=== PATIENT | male | born 1955 | race Caucasian/White ===

== ENCOUNTER 2024-07-03 13:31 | Oncology outpatient (recurring) (ONCR) | payer OTHER, SELFPAY ==
[2024-07-03 14:02] LABS: Basophils # 0.1 10^3/uL (0.0-0.1); Basophils % 0.6 %; Eosinophils % 9.3 %; Hematocrit 38.5 % (37-53); Lymphocytes # 1.5 10^3/uL (0.8-4.8); Lymphocytes % 13.7 %; Mean Corpuscular Hemoglobin 28.6 pg (27-33); Mean Corpuscular Volume 86.7 fl (82-101); Mean Platelet Volume 9.6 fL (7.4-10.4); Monocytes # 0.8 10^3/uL (0.2-0.9); Monocytes % 6.7 %; Neutrophils # 7.73 10^3/uL (1.8-7.7); Neutrophils % 69.2 %; Nucleated Red Blood Cells % 0 %; Platelet Count 262 10^3/cmm (157-399); Red Blood Count 4.44 10^6/uL (3.85-5.65); Red Cell Distribution Width 14.4 % (12.1-15.1); White Blood Count 11.18 10^3/uL (3.29-11.43)
[2024-07-03 14:21] LABS: Alanine Aminotransferase 23 U/L (0-41); Alkaline Phosphatase 100 U/L (40-130); Anion Gap 15.4 (5-19); Aspartate Amino Transferase 16 U/L (0-40); Blood Urea Nitrogen 14 mg/dL (8-23); Carbon Dioxide 24 mmol/L (22-29); Chloride 103 mmol/L (98-107); Creatinine Clr Calc Pharmacy 84.7743; Globulin 2.6 g/dL (1.3-4.6); Glomerular Filtration Rate 73.9 mL/min (90-130); Glucose 92 mg/dL (65-115); Osmolality Calculated 286 mOsm/kg (285-295); Potassium 4.4 mmol/L (3.5-5.1); Sodium 138 mmol/L (136-145); Total Bilirubin 0.3 mg/dL (0.15-1.2); Total Protein 6.6 g/dL (6.6-8.7); Uric Acid 6.3 mg/dL (3.4-7.0)
[2024-07-03 14:51] LABS: Lactate Dehydrogenase 163 U/L (135-225)
[2024-07-04 13:10] LABS: Leukemia Profile (BBPL) See Report
== END 2024-07-28 23:59 | disposition home or self-care (01) ==
PROVIDERS: PCP Family Medicine; Visit Provider Internal Medicine Hematology & Oncology
DX: C92.11 Chronic myeloid leukemia, BCR/ABL-positive, in remission (principal)
CPT/HCPCS: 36415; 80053; 83615; 84550; 85025; 88184; 88185; 99204

== ENCOUNTER → 2024-07-17 08:26 | Outpatient (BNVA) | payer OTHER, SELFPAY | PROVIDERS: PCP Family Medicine; Referring Provider Family Medicine; Visit Provider Surgery | DX: Z12.11 Encounter for screening for malignant neoplasm of colon (principal) | CPT/HCPCS: 99204 ==

== ENCOUNTER 2024-07-24 14:14 | Day surgery (SDC) | payer OTHER, SELFPAY ==
[2024-07-24 14:31] VITALS: BP 160/97; PULSE 88; RESP 20; TEMP 37; O2SAT 95; BMI 40.7
--- NOTE | 2024-07-24 14:37 | P.HPUD_ITS ---
Surgery/Procedure H&P Update DATE OF PROCEDURE: July 24, 2024 DATE H&P PERFORMED: 07/17/24 H&P UPDATE INFORMATION: I have reviewed H&P completed within last 30 days, I have examined patient prior to procedure, No changes to prior documentation and H&P is in [facility] EMR on date indicated PLANNED PROCEDURE: Operation Date: 07/24/24 12:25 Proposed Procedures p Colonoscopy 26904, G0121, Z12.11(Not Applicable) - Adam Freeman MD
--- NOTE | 2024-07-24 14:37 | W.PM.OPSUD ---
Surgery/Procedure H&P Update DATE OF PROCEDURE: July 24, 2024 DATE H&P PERFORMED: 07/17/24 H&P UPDATE INFORMATION: I have reviewed H&P completed within last 30 days, I have examined patient prior to procedure, No changes to prior documentation and H&P is in [facility] EMR on date indicated PLANNED PROCEDURE: Operation Date: 07/24/24 12:25 Proposed Procedures p Colonoscopy 93458, G0121, Z12.11(Not Applicable) - Adam Freeman MD
[2024-07-24] MEDS: sodium chloride 0.9% 1,000 ML 30 ML IV (14:39)
--- NOTE | 2024-07-24 14:55 | ANES.PREANE2 ---
Pre-Anesthetic Assessment Height/Weight: Height 1.7 m Weight 117.934 kg Temp Pulse Resp BP Pulse Ox O2 Del Method 98.6 F 88 20 H 160/97 95 Room Air 07/24/24 14:31 07/24/24 14:31 07/24/24 14:31 07/24/24 14:31 07/24/24 14:31 07/24/24 14:31 Preop Diagnosis: screening Operation Date: 07/24/24 12:25 Proposed Procedures p Colonoscopy 75944, G0121, Z12.11(Not Applicable) - Adam Freeman MD Familial anesthetic complications: none Was Beta Anabel taken within 24 hours: Yes Was Clonidine taken within 24 hours: N/A Last intake: Intake Last Liquid Date 07/23/24 Last Liquid Time 22:00 Last Solid Date 07/22/24 Last Solid Time 09:00 Social No alcohol and No tobacco (history but does chew tobacco ) Exam alert, oriented x 3, clear to auscultation bilaterally and regular rate & rhythm Airway Submandibular: within normal limits Cervical ROM: within normal limits Mallampati: Class II Comments: Comments: poor dentition several missing. patient states might have swollen one today oral chemo rotted teeth Pulmonary lower lobe scarring CV/HEM Arrythmia, Congestive Heart Failure and Hypertension CABG x 3 vessel stent replaced x 01 march 2023 None reported Hepatic None reported GI None reported Metabolic Hyperlipidemia, Morbid Obesity and Thyroid Disease Musc/skel Osteoarthritis/DJD and Weakness hip pain leukemia CML Neuropsych None reported Anesthetic Plan ASA status: 3 Anesthesia: MAC Risk of > 500 ml blood loss (7ml/kg in children): No Medications/Allergies Home Medications Medication Instructions Recorded Confirmed Last Taken Type atorvastatin 40 mg tablet 40 mg PO DAILY 07/03/24 07/19/24 07/19/24 History diclofenac sodium 1 % topical gel 2 g topical QID PRN Pain 07/03/24 07/19/24 Unknown History (Voltaren Arthritis Pain) levothyroxine 112 mcg capsule 112 mcg PO DAILY 07/03/24 07/19/24 07/24/24 06:30 History lisinopril 10 mg tablet 10 mg PO DAILY 07/03/24 07/19/24 07/24/24 06:30 History metoprolol succinate 25 mg 12.5 mg PO BID 07/03/24 07/19/24 07/24/24 06:30 History tablet,extended release 24 hr oxycodone 10 mg tablet 10 mg PO Q4H PRN Pain 07/03/24 07/19/24 07/19/24 History ticagrelor 90 mg tablet (Brilinta) 90 mg PO BID 07/03/24 07/19/24 07/18/24 History 14 mushroom complex 1 tab PO DAILY 07/17/24 07/19/24 07/24/24 06:30 History E-400 1 tab PO DAILY 07/17/24 07/19/24 07/24/24 06:30 History aspirin 81 mg tablet,delayed 81 mg PO DAILY 07/17/24 07/19/24 07/24/24 06:30 History release (Adult Low Dose Aspirin) bosutinib 100 mg capsule (Bosulif) 400 mg PO DAILY 07/17/24 07/19/24 07/24/24 06:30 History cholecalciferol (vitamin D3) 50 50 mcg PO DAILY 07/17/24 07/19/24 07/24/24 06:30 History mcg (2,000 unit) capsule ondansetron HCl 4 mg tablet 4 mg PO Q8H PRN nausea and 07/17/24 07/19/24 Unknown Rx vomiting #3 tabs vitamin A acetate 3,000 mcg 3,000 mcg PO DAILY 07/17/24 07/19/24 07/24/24 06:30 History (10,000 unit) sublingual tablet Allergies Allergy/AdvReac Type Severity Reaction Status Date / Time Penicillins Allergy ALGY-Rash Verified 07/19/24 13:03 Current Medications Generic Name Dose Route Start Last Admin Trade Name Freq PRN Reason Stop Dose Admin Sodium Chloride 1,000 mls @ 30 mls/hr 07/24/24 14:30 07/24/24 14:39 Sodium Chloride 0.9% IV 07/25/24 14:29 30 mls/hr .Q24H HELEN Administration PFSH Anesthesia Family History (Updated 07/17/24 @ 08:49 by JOE Escamilla) Daughter Colon polyps Sister Cancer bone cancer Social History (Updated 07/17/24 @ 08:48 by JOE Escamilla) Smoking and tobacco/nicotine status: current every day tobacco/nicotine user (chewing tob) smokeless tobacco Smokeless tobacco user: chewing tobacco Data Anesthesia Cardiac Studies: No Data to Display
[2024-07-24 15:30] VITALS: BP 99/52; PULSE 77; RESP 20; TEMP 36.3; O2SAT 92
[2024-07-24 15:40] VITALS: BP 124/73; PULSE 80; RESP 18; O2SAT 91
[2024-07-24 15:50] VITALS: BP 137/82; PULSE 85; RESP 16; O2SAT 96
--- NOTE | 2024-07-24 16:10 | ANE.PACU2 ---
Inpatient post-anesthesia follow up: Airway intact: Yes Vital signs: Temperature 97.3 F Pulse Rate 85 Respiratory Rate 16 Blood Pressure 137/82 Pulse Oximetry 96 Oxygen Delivery Me thod Room Air Oxygen Flow Rate Fraction of Inspir ed Oxygen Hydration adequate: Yes Nausea and vomiting: No Pain level: 1 Mental status: Baseline
== END 2024-07-24 16:10 | disposition home or self-care (01) ==
PROVIDERS: PCP Family Medicine; Visit Provider Surgery
PROC: 0DJD8ZZ Inspection of Lower Intestinal Tract, Via Natural or Artificial Opening Endoscopic (ICD-10-PCS; CPT 45378; principal; 2024-07-24 12:25)
DX: Z12.11 Encounter for screening for malignant neoplasm of colon (principal); K57.30 Diverticulosis of large intestine without perforation or abscess without bleeding; I11.0 Hypertensive heart disease with heart failure; I50.9 Heart failure, unspecified; E78.5 Hyperlipidemia, unspecified; E66.01 Morbid (severe) obesity due to excess calories; Z68.41 Body mass index [BMI] 40.0-44.9, adult; F17.220 Nicotine dependence, chewing tobacco, uncomplicated; Z79.82 Long term (current) use of aspirin; I25.10 Atherosclerotic heart disease of native coronary artery without angina pectoris
CPT/HCPCS: 45378; J2704; J7030

== ENCOUNTER → 2024-08-02 10:02 | Outpatient (BNVA) | payer OTHER, SELFPAY | PROVIDERS: PCP Family Medicine; Visit Provider Specialist | DX: M25.552 Pain in left hip (principal); M16.12 Unilateral primary osteoarthritis, left hip; E66.01 Morbid (severe) obesity due to excess calories; Z68.41 Body mass index [BMI] 40.0-44.9, adult; C92.11 Chronic myeloid leukemia, BCR/ABL-positive, in remission | CPT/HCPCS: 73502; 99204 ==

== ENCOUNTER → 2024-08-10 08:26 | Outpatient (BNVA) | payer OTHER, SELFPAY | PROVIDERS: PCP Family Medicine; Visit Provider Nurse Practitioner Family | DX: L82.1 Other seborrheic keratosis (principal); L57.8 Other skin changes due to chronic exposure to nonionizing radiation; L73.8 Other specified follicular disorders; D22.5 Melanocytic nevi of trunk; L90.5 Scar conditions and fibrosis of skin; Z08 Encounter for follow-up examination after completed treatment for malignant neoplasm; Z85.828 Personal history of other malignant neoplasm of skin; L57.0 Actinic keratosis | CPT/HCPCS: 17000; 99203 ==

== ENCOUNTER 2024-09-04 13:50 | Oncology outpatient (recurring) (ONCR) | payer OTHER, SELFPAY ==
[2024-09-04 14:23] LABS: Basophils # 0.1 10^3/uL (0.0-0.1); Basophils % 0.5 %; Eosinophils # 1.3 10^3/uL (0.0-0.8); Eosinophils % 9.8 %; Hematocrit 39.2 % (37-53); Lymphocytes # 1.5 10^3/uL (0.8-4.8); Lymphocytes % 11.2 %; Mean Corpuscular HGB Conc 32.9 g/dL (30-55); Mean Corpuscular Hemoglobin 29.1 pg (27-33); Mean Corpuscular Volume 88.3 fl (82-101); Mean Platelet Volume 9.4 fL (7.4-10.4); Monocytes # 0.9 10^3/uL (0.2-0.9); Monocytes % 6.8 %; Neutrophils % 71.3 %; Nucleated Red Blood Cells % 0 %; Platelet Count 311 10^3/cmm (157-399); Red Blood Count 4.44 10^6/uL (3.85-5.65); Red Cell Distribution Width 14.3 % (12.1-15.1); White Blood Count 13.31 10^3/uL (3.29-11.43)
[2024-09-04 14:43] LABS: Alanine Aminotransferase 15 U/L (0-41); Albumin Level 3.9 g/dL (3.5-5.2); Alkaline Phosphatase 102 U/L (40-130); Aspartate Amino Transferase 12 U/L (0-40); Blood Urea Nitrogen 23 mg/dL (8-23); Calcium 9.2 mg/dL (8.5-10.5); Carbon Dioxide 20 mmol/L (22-29); Chloride 103 mmol/L (98-107); Creatinine Clr Calc Pharmacy 82.7237; Globulin 2.8 g/dL (1.3-4.6); Glomerular Filtration Rate 73.9 mL/min (90-130); Glucose 113 mg/dL (65-115); Osmolality Calculated 290 mOsm/kg (285-295); Sodium 138 mmol/L (136-145); Total Bilirubin 0.3 mg/dL (0.15-1.2); Total Protein 6.7 g/dL (6.6-8.7); Uric Acid 6.7 mg/dL (3.4-7.0)
[2024-09-04 14:59] LABS: Lactate Dehydrogenase 161 U/L (135-225)
[2024-09-07 20:08] LABS: BCR ABL1 (IS) 0.004 (0.000); P210 BCR ALB1 DETECTED; P210 BCR ALB1 Yes Test Yes; Prior Results NG; Source blood
== END 2024-09-28 23:59 | disposition home or self-care (01) ==
PROVIDERS: Internal Medicine Hematology & Oncology; PCP Family Medicine; Visit Provider Internal Medicine Medical Oncology
DX: C92.11 Chronic myeloid leukemia, BCR/ABL-positive, in remission (principal)
CPT/HCPCS: 36415; 80053; 81206; 83615; 84550; 85025; 99214

== ENCOUNTER → 2024-10-03 13:28 | Outpatient (BNVA) | payer OTHER, SELFPAY | PROVIDERS: PCP Family Medicine; Visit Provider Nurse Practitioner | DX: M16.12 Unilateral primary osteoarthritis, left hip (principal); E66.01 Morbid (severe) obesity due to excess calories; Z68.41 Body mass index [BMI] 40.0-44.9, adult; C92.11 Chronic myeloid leukemia, BCR/ABL-positive, in remission | CPT/HCPCS: 99213 ==

== ENCOUNTER 2024-10-30 12:56 | Oncology outpatient (recurring) (ONCR) | payer OTHER, SELFPAY ==
[2024-10-30 13:38] LABS: Basophils # 0.1 10^3/uL (0.0-0.1); Basophils % 0.6 %; Eosinophils # 1.3 10^3/uL (0.0-0.8); Eosinophils % 10.4 %; Hematocrit 35.8 % (37-53); Lymphocytes # 2.1 10^3/uL (0.8-4.8); Lymphocytes % 16.9 %; Mean Corpuscular HGB Conc 32.4 g/dL (30-55); Mean Corpuscular Volume 86.3 fl (82-101); Monocytes # 1.2 10^3/uL (0.2-0.9); Monocytes % 9.2 %; Neutrophils % 62.3 %; Nucleated Red Blood Cells % 0 %; Platelet Count 310 10^3/cmm (157-399); Red Blood Count 4.15 10^6/uL (3.85-5.65); Red Cell Distribution Width 14.2 % (12.1-15.1); White Blood Count 12.54 10^3/uL (3.29-11.43)
[2024-10-30 13:55] LABS: Alanine Aminotransferase 19 U/L (0-41); Alkaline Phosphatase 110 U/L (40-130); Aspartate Amino Transferase 14 U/L (0-40); Blood Urea Nitrogen 23 mg/dL (8-23); Calcium 9.3 mg/dL (8.5-10.5); Carbon Dioxide 24 mmol/L (22-29); Chloride 103 mmol/L (98-107); Globulin 2.8 g/dL (1.3-4.6); Glomerular Filtration Rate 73.9 mL/min (90-130); Glucose 98 mg/dL (65-115); Osmolality Calculated 286 mOsm/kg (285-295); Sodium 136 mmol/L (136-145); Total Bilirubin 0.2 mg/dL (0.15-1.2); Total Protein 6.8 g/dL (6.6-8.7)
[2024-11-03 18:49] LABS: P210 BCR ALB1 NOT DETECTED; P210 BCR ALB1 Yes Test Yes; Source blood
== END 2024-11-26 23:59 | disposition home or self-care (01) ==
PROVIDERS: PCP Family Medicine; Visit Provider Internal Medicine Medical Oncology
DX: C92.11 Chronic myeloid leukemia, BCR/ABL-positive, in remission (principal)
CPT/HCPCS: 36415; 80053; 81206; 85025

== ENCOUNTER → 2024-12-24 15:26 | Outpatient (BNVA) | payer OTHER, SELFPAY | PROVIDERS: PCP Family Medicine; Visit Provider Internal Medicine Cardiovascular Disease | DX: R07.9 Chest pain, unspecified (principal); R93.1 Abnormal findings on diagnostic imaging of heart and coronary circulation | CPT/HCPCS: 93005 ==

== ENCOUNTER 2025-01-01 13:19 | Oncology outpatient (recurring) (ONCR) | payer OTHER, SELFPAY ==
[2025-01-01 14:00] LABS: Basophils # 0.1 10^3/uL (0.0-0.1); Basophils % 0.5 %; Eosinophils # 1.5 10^3/uL (0.0-0.8); Hematocrit 39.1 % (37-53); Lymphocytes # 1.7 10^3/uL (0.8-4.8); Lymphocytes % 14.6 %; Mean Corpuscular HGB Conc 32.7 g/dL (30-55); Mean Corpuscular Hemoglobin 28.3 pg (27-33); Mean Corpuscular Volume 86.5 fl (82-101); Monocytes # 1.1 10^3/uL (0.2-0.9); Monocytes % 9.3 %; Neutrophils # 7.23 10^3/uL (1.8-7.7); Neutrophils % 61.9 %; Nucleated Red Blood Cells % 0 %; Platelet Count 361 10^3/cmm (157-399); Red Blood Count 4.52 10^6/uL (3.85-5.65); Red Cell Distribution Width 14.6 % (12.1-15.1); White Blood Count 11.68 10^3/uL (3.29-11.43)
[2025-01-01 14:18] LABS: Alanine Aminotransferase 18 U/L (0-41); Alkaline Phosphatase 86 U/L (40-130); Anion Gap 17.9 (5-19); Aspartate Amino Transferase 16 U/L (0-40); Blood Urea Nitrogen 27 mg/dL (8-23); Calcium 9.2 mg/dL (8.5-10.5); Carbon Dioxide 21 mmol/L (22-29); Chloride 101 mmol/L (98-107); Creatinine Clr Calc Pharmacy 82.3461; Globulin 3.2 g/dL (1.3-4.6); Glucose 87 mg/dL (65-115); Lactate Dehydrogenase 150 U/L (135-225); Osmolality Calculated 284 mOsm/kg (285-295); Potassium 4.9 mmol/L (3.5-5.1); Sodium 135 mmol/L (136-145); Total Bilirubin 0.3 mg/dL (0.15-1.2); Total Protein 7.2 g/dL (6.6-8.7)
[2025-01-04 19:18] LABS: BCR ABL1 (IS) 0.019 (0.000); P210 BCR ALB1 DETECTED; P210 BCR ALB1 Yes Test Yes; Prior Results NG; Source serum
== END 2025-01-26 23:59 | disposition home or self-care (01) ==
PROVIDERS: Nurse Practitioner; PCP Family Medicine; Visit Provider Internal Medicine Medical Oncology
DX: C92.11 Chronic myeloid leukemia, BCR/ABL-positive, in remission (principal); R60.9 Edema, unspecified; Z79.899 Other long term (current) drug therapy
CPT/HCPCS: 36415; 80053; 81206; 83615; 85025; 99214

== ENCOUNTER 2025-02-01 11:26 | Outpatient (CLI) | payer OTHER, SELFPAY ==
--- NOTE | 2025-02-01 12:00 | USCV_ITS ---
[facility] Age: 69 Gender: M : 1955 Exam Date: 02/01/2025 11:42 Ordering Phys: Maria Luisa Garrison MD ([email or web address]) Technologist: FRIEDA Exam Location: [facility] Indication: SoB BP: 110 / 60 HR: 62 Rhythm: Sinus Technical Quality: Adequate MEASUREMENTS (Male / Female) Normal Values 2D ECHO LV Diastolic Diameter PLAX 5.6 cm 4.2 - 5.9 / 3.9 - 5.3 cm IVS Diastolic Thickness 0.8 cm 0.6 - 1.0 / 0.6 - 0.9 cm IVS Systolic Thickness 1.3 cm LVPW Diastolic Thickness 1.0 cm 0.6 - 1.0 / 0.6 - 0.9 cm LVPW Systolic Thickness 1.5 cm LVOT Diameter 2.0 cm LV Ejection Fraction 2D Teich 47.6 % LV Ejection Fraction MOD 4C 50.7 % LV Ejection Fraction MOD 2C 43.6 % LV Ejection Fraction 2C AL 45.5 % LA Diameter 4.9 cm RA Systolic Volume 4C AL 56.3 ml RA Systolic Volume 4C MOD 49.4 ml LA Sys Volume AL 83.7 cm cubed LA Sys Volume Index AL 34.6 cm cubed/m squared Aorta at Sinotubular Diameter 3.0 cm IVC Diameter 2.7 cm M-MODE LA Ao Ratio MM 2.1 AV Cusp Separation MM 1.4 cm DOPPLER AV Peak Velocity 255.5 cm/s LVOT Peak Velocity 87.0 cm/s AV Area Cont Eq vti 1.1 cm squared AV Area Cont Eq pk 1.1 cm squared MV Peak Velocity 115.0 cm/s MV Area PHT 3.0 cm squared Mitral E to A Ratio 1.5 TR Peak Velocity 149.0 cm/s TR Peak Gradient 8.9 mmHg TV Peak E Velocity 53.0 cm/s PV Peak Velocity 127.0 cm/s FINDINGS Left Ventricle Moderately increased left ventricular cavity size. Severely decreased left ventricular systolic function. Left ventricular ejection fraction is estimated at 35 %. Grade II/IV diastolic dysfunction, moderately elevated filling pressures. Right Ventricle The right ventricle is normal in size and function. Right Atrium The right atrium is normal in size. Left Atrium Moderately increased left atrial size. Mitral Valve Structurally normal mitral valve without significant stenosis or prolapse. There is no mitral regurgitation. Aortic Valve Severe aortic valve calcification. Moderate aortic valve stenosis, mean gradient 13.6 mmHg, OXANA 1.1 cm squared. Trace aortic valve regurgitation. Tricuspid Valve Structurally normal tricuspid valve without significant stenosis or regurgitation. Pulmonary artery systolic pressure is normal. Pulmonic Valve Trace pulmonary valve regurgitation. Pericardium Normal pericardium without effusion. Aorta Normal ascending aorta dimension. IVC The inferior vena cava appears normal. CONCLUSIONS Moderately increased left ventricular cavity size. Severely decreased left ventricular systolic function. Left ventricular ejection fraction is estimated at 35 %. Grade II/IV diastolic dysfunction, moderately elevated filling pressures. Moderately increased left atrial size. Severe aortic valve calcification. Moderate aortic valve stenosis, mean gradient 13.6 mmHg, OXANA 1.1 cm squared. Trace aortic valve regurgitation. There is no pericardial effusion. Right atrial pressure is around 10 mm of mercury. Maria Luisa Garrison MD (Electronically Signed) Final Date: 04 February 2025 22:30 S
== END 2025-02-01 11:27 | disposition home or self-care (01) ==
LOC: RAD 11:26
PROVIDERS: PCP Family Medicine; Visit Provider Internal Medicine Cardiovascular Disease
DX: R06.02 Shortness of breath (principal); I51.7 Cardiomegaly; R93.1 Abnormal findings on diagnostic imaging of heart and coronary circulation; I35.8 Other nonrheumatic aortic valve disorders; I35.0 Nonrheumatic aortic (valve) stenosis
CPT/HCPCS: 93306

== ENCOUNTER → 2025-02-28 09:02 | Outpatient (BNVA) | payer OTHER, SELFPAY | PROVIDERS: PCP Family Medicine; Visit Provider Nurse Practitioner Family | DX: L81.4 Other melanin hyperpigmentation (principal); L90.5 Scar conditions and fibrosis of skin; L57.8 Other skin changes due to chronic exposure to nonionizing radiation; L82.1 Other seborrheic keratosis; X32.XXXA Exposure to sunlight, initial encounter; L73.8 Other specified follicular disorders; Z08 Encounter for follow-up examination after completed treatment for malignant neoplasm; Z85.828 Personal history of other malignant neoplasm of skin; L30.9 Dermatitis, unspecified; D48.5 Neoplasm of uncertain behavior of skin; L57.0 Actinic keratosis | CPT/HCPCS: 11102; 17000; 99213 ==

== ENCOUNTER 2025-03-25 13:45 | Emergency (ER) | payer OTHER, SELFPAY ==
[2025-03-25 13:49] VITALS: PULSE 70; RESP 16; TEMP 36.5; O2SAT 95
--- OUTSIDE RECORDS SUMMARY | 2025-03-25 13:53 | XMS_ITS | Patient Health Record ---
Author Organization [facility] Address [address] [place], [place] [id number] Care Team Providers Care Kindergarten Prep Teacher Name Role Phone [facility] Primary Care Provider Williams Stockton MD Unavailable [phone] [place], [place] Unavailable Unavailable Carie Squires Unavailable [phone] Allergies Allergen (clinical drug ingredient) Drug/Non Drug Allergy documented on EMR Reaction Allergy Type Onset Date Status lisinopril lisinopril Unknown Drug Allergy Inact enrique penicillin V penicillin V potassium Unknown Drug Allergy Active Results Component Value Reference Range Notes Urine tox screen / MS if ind icated Reviewed date:09/17/2024 02:12:27 PM Interpretation:Consistent Performing Lab: Notes/Report: Consistent Reason For Referral Reason Pain in left hip Diagnosis 1 Pain in left hip (M2 5.552) Referring Provider First Name Lucero Daniel ff Referring Provider Last Name [place] Referred Organization [facility] [employer] [facility] Referred Provider Williams Camacho Referred Address [address], [id number], General Notes Heaven Jordan 12:35:18 PM >Need SSN. Ready to schedule., Heaven Jordan 06/26/2024 01:15:20 PM >Left message to schedule. Referral Priority Routine Medications Medication SIG (Take, Route, Frequency, Duration) Notes Start Date End Date Status lisinopril 10 mg 1 tab(s) orally once a day Active oxyCODONE 10 mg 1-2 tabs orally Q4-6H prn pain (max 5/day; hold within 4H of planned sleep) for 28 days ICD-10: G89.29 01/10/2025 Active oxyCODONE 10 mg 1-2 tabs orally Q4-6H prn pain (max 5/day; hold within 4H of planned sleep) for 28 days Do not fill prior to 02/07/25. ICD-10: G89.29 01/07/2025 Active oxyCODONE 10 mg 1-2 tabs orally Q4-6H prn pain (max 5/day; hold within 4H of planned sleep) for 28 days Do not fill prior to 03/07/25. ICD-10: G89.29 01/07/2025 Active multivitamin Therapeutic Multiple Vitamins 1 tab(s) orally once a day 14 mushroom complex Active ticagrelor 90 mg 1 tab(s) orally 2 times a day Active furosemide 20 mg 1 tab(s) orally once a day Active vitamin A Active atorvastatin 40 mg 1 tab(s) orally once a day Active vitamin E Active Atiya Low Dose 81 mg 1 tab(s) orally once a day Active Vitamins D3 & K2 as directed A ctive bosutinib 100 mg 4 tab(s) orally for chronic myeloid leukemia Active Voltaren Arthritis Pain 1% as directed applied topically 4 times a day Active folic acid 0.4 mg 1 tab(s) orally once a day Active zinc citrate Active levothyroxine 112 mcg (0.112 mg) 1 tab(s) orally once a day Active Metoprolol Tartrate 25 mg 1 tab(s) orally 2 times a day Active Ocuvite Antioxidant Multiple Vitamins and Minerals as directed orally Active Social History Tobacco Use: Social History Observation Description Date Smoking Status WARNING: Information temporarily unavailable Tobacco use: Question Answer Notes Additional Findings: Tobacco User chews tobacco 1/4 can daily : former smoker When did you stop smoking? 1994 AUDIT-C (Standard) Question Answer Notes Did you have a drink contain ing alcohol in the past year? Yes How often did you have six o r more drinks on one occasion in the past year? Never (0 point) How many drinks did you have on a typical day when you were drinking in the past year? 1 or 2 drinks (0 point) How often did you have a dri nk containing alcohol in the past year? Monthly or less (1 point) Points 1 Interpretation Negative Problems Problem Type SNOMED Code ICD Code Onset Dates Problem Status W/U Status Risk Notes Problem High risk drug monitoring status (023051871) terminologist (current) use of opiate analgesic (Z79.891) Active confirmed Problem Sleep disorder (48781231) Other sleep disorders (G47.8) Active confirmed Problem Chronic pain (65574666) Other chronic pain (G89.29) Active confirmed Problem Osteoarthritis of hip (196713053) Osteoarthritis of hip, unspecified (M16.9) Active confirmed Problem Pain of left hip joint (finding) (855358739238308) Pain in left hip (M25.552) Active confirmed Problem Long-term current use of drug therapy (026021573) 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) Active confirmed Vital Signs Temperature 97.0 degrees Fahrenheit 01/10/2025 Oximetry 94 % 01/10/2025 Blood pressure diastolic 48 mm Hg 01/10/2025 Height 67 in 01/10/2025 Blood pressure systolic 80 mm Hg 01/10/2025 Weight 255 lbs 01/10/2025 BMI 39.93 kg/m2 01/10/2025 Encounters Encounter Location Date Provider Diagnosis [facility] [employer] [address] [place], [place] [id number] 09/17/2024 Carie Palacios Pain in left hip M25.552 ; Osteoarthritis of hip, unspecified M16.9 ; Other sleep disorders G47.8 and Other fci (current) drug therapy Z79.899 [facility] [address] [place], [place] [id number] 10/04/2024 Williams Tompson Pain in left hip M25.552 ; Osteoarthritis of hip, unspecified M16.9 ; Other sleep disorders G47.8 and Other marine oil terminal superintendent (current) drug therapy Z79.899 [facility] [address] [place], [place] [id number] 11/15/2024 Willaims Tompson Pain in left hip M25.552 ; Other chronic pain G89.29 ; Osteoarthritis of hip, unspecified M16.9 ; Other sleep disorders G47.8 and retirement (current) use of opiate analgesic Z79.891 [facility] [address] [place], [place] [id number] 01/10/2025 Williams Tompson Pain in left hip M25.552 ; Other chronic pain G89.29 and Other sleep disorders G47.8 [facility] [employer] [address] [place], [place] [id number] 12/13/2024 Williams Camacho Assessments Encounter Date Diagnosis (ICD Code) Assessment Notes Treatment Notes Treatment Clinical Notes Section Notes 01/10/2025 Other chronic pain (ICD-10 - G89.29) 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 Plan to continue oral opioid medication at today's visit. 01/10/2025 Pain in left hip (ICD-10 - M25.552) Chronic left hip pain and severe osteoarthritis of left hip. 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 Plan to continue oral opioid medication management. 11/15/2024 Pain in left hip (ICD-10 - M25.552) Chronic left hip pain and severe osteoarthritis of left hip. 10/04/2024 Pain in left hip (ICD-10 - M25.552) Patient reports today that he has met his weight loss goal / needed BMI and he is now eligible for left LEAH per Dr. Ballard, his [facility] orthopedist. 09/17/2024 Osteoarthritis of hip, unspecified (ICD-10 - M16.9) Severe osteoarthritis of the left hip as noted on left hip x-ray report from 08/02/24. 09/17/2024 Pain in left hip (ICD-10 - M25.552) Chronic left hip pain. Patient reports that a left LEAH work up was in progress while his was living in [place]. Pre-operative plan included 20 pound weight loss, updated dental care, and cardiac clearance. Upon moving to [place], that same plan has been instituted. Plan to obtain left hip MRI report from [facility] in [place], [place]. 10/04/2024 Osteoarthritis of hip, unspecified (ICD-10 - M16.9) Severe osteoarthritis of the left hip as noted on left hip x-ray report from 08/02/24. 09/17/2024 Other sleep disorders (ICD-10 - G47.8) Patient states his sleep is disrupted by trips to the bathroom and left hip pain. Consider sleep study. 11/15/2024 Osteoarthritis of hip, unspecified (ICD-10 - M16.9) Severe osteoarthritis of the left hip as noted on left hip x-ray report from 08/02/24. Patient reports that he has met his weight loss goal and is now eligible for left LEAH per Dr. Ballard, his [facility] orthopedist. 01/10/2025 Other sleep disorders (ICD-10 - G47.8) Plan to continue to restrict opioid usage in relation to sleep for safety concerns. 11/15/2024 Other sleep disorders (ICD-10 - G47.8) Plan to continue to restrict opioid usage in relation to sleep for safety concerns: patient has verbalized understanding to hold short-acting opioids within four hours of planned sleep. 10/04/2024 Other sleep disorders (ICD-10 - G47.8) Patient has stated his sleep is disrupted by trips to the bathroom and left hip pain. Patient has moderate obesity and a history of snoring and some hypersomnia. Have recommended a sleep study. Offer of an order for such a study was declined by patient: patient has verbalized understanding to notify this facility if the study is desired. Plan to restrict opioid usage in relation to sleep for safety concerns: patient has verbalized understanding to hold short-acting opioids within four hours of planned sleep. Patient has been counseled on the risks of sleep apnea (if present), with or without opioid and / or other sedative usage, and the patient verbalized understanding and acceptance of the increased risk (sleep apnea, respiratory depression, ) with opioid and / or sedative substance usage. Patient has been counseled that synergistic risk occurs with concomitant opioid and sedative usage. Patient has been counseled to hold opioid and / or sedative substances prior to planned sleep or dangerous activities and patient verbalized understanding that noncompliance would be at patient's increased risk. 09/17/2024 Other marine oil terminal superintendent (current) drug therapy (ICD-10 - Z79.899) Patient was given a copy of their Treatment Agreement; signed on 07/25/25. 2022 opioid (OUD) risk tool score = 1. This places the patient in the low risk category. Plan urine toxicology screen today in anticipation of possibly starting opioid therapy at future visit as well as to assess for any prescribed, unprescribed, and / or illicit controlled substance(s). 10/04/2024 Other marine oil terminal superintendent (current) drug therapy (ICD-10 - Z79.899) Patient has received the Opioid Analgesic [facility] Patient Counseling Guide. Patient has had opportunity to read the Guide and ask questions pertaining to the Guide. Patient has been advised on 10/04/24 that any suspected patient misuse, abuse, or diversion of controlled substances (i.e. opioids/narcotics/ pain killers) WILL result in dissolution of treatment from this clinic. Patients adhering to the concepts contained within the patient's Treatment Agreement will be protected from such termination of care. Patient signed an opioid consent form on 10/04/24. Patient was given a copy of their Treatment Agreement; signed on 07/25/25. 2022 opioid (OUD) risk tool score = 1. This places the patient in the low risk category. 11/15/2024 retirement (current) use of opiate analgesic (ICD-10 - Z79.891) Patient has a total daily MED of 75. This places the [facility] in the [facility] high risk category for total daily opioid usage. Patient confirms he currently has a dose of Narcan nasal spray as provided by previous providers. 2022 opioid (OUD) risk tool score = 1. This places the patient in the low risk category. 01/10/2025 Other The service was provided by [facility], as part of the ongoing care plan established by Williams Camacho MD, who was present in the office for direct supervision during the encounter. Patient was provided with a letter at today's visit informing patient that this clinic is closing due to Dr. Camacho's half-way; see scanned document. Terminal prescriptions were given to the patient along with tapering instructions. Due to the [facility]'s inability to store more than 1 month of opioid prescriptions at a time, remaining 2 prescriptions printed and given to patient to fill in 28 and 56 days. 10/04/2024 Other 09/17/2024 Other Continue above medication as currently prescribed by [place] PCP. Case reviewed and treatment plan approved by Dr. Camacho. 11/15/2024 Other Due to the [facility]'s inability to store more than 1 month of opioid prescriptions at a time, patient's remaining eRx will be sent in 28 days. The service was provided by [facility] Landers, as part of the ongoing care plan established by Williams Camacho MD, who was present in the office for direct supervision during the encounter. Plan Of Treatment No Information Insurance Providers Payer Name Payer Address Payer Phone Subscriber Number Group Number Insured Name Patient Relationship to Insured Coverage Start Date Coverage End Date [employer] [address] [place] [id number] Emir Mcmullen Self - patient is the insured Medical (General) History Medical History History ICD Code Chronic pain Hip pain, left Severe osteoarthritis left h ip as noted upon review of prior radiology report Sensorineural hearing loss Tinnitus, bilateral Chronic myeloid leukemia (2008 - on g treatment has been reported) Congestive heart failure Mesothelioma Sleep disorder with poor sle ep, snoring and some hypersomnia noted upon sleep apnea screening (patient has declined offer for a sleep study and possible treatment) Obesity, moderate Surgical History Surgery Date(Month/Year) Appendectomy, 1997 Bilateral total knee replacements, [place], 2 009 Open heart surgery with 4 st ents and 3 grafts, performed in [place], [place], 2008 Thoracentesis x 4, performed at [facility], 2021 Replacement of cardiac stents, performed in [place], [place], 02/2023 Colonoscopy, performed at [facility], 2023
--- OUTSIDE RECORDS SUMMARY | 2025-03-25 13:53 | XMS_ITS | Clinical Summary ---
[facility] Organization [facility] Address [address] [place] [address] Phone Care Team Providers Care Forest Supervisor Name Role Phone Unavailable Primary Care Provider Unavailabl e Allergies Active Allergy Reactions Criticality Noted Date Comments Lisinopril Cough Low 11/23/2023 Penicillins Rash Low 11/23/2023 Medications bosutinib (BOSULIF) 100 mg tablet Take 400 mg by mouth daily with breakfast. Active metoprolol tartrate (LOPRESSOR) 25 mg tablet Take 25 mg by mouth 2 times daily. Active lisinopriL (PRINIVIL) 5 mg tablet Take 5 mg by mouth late in the day. Active levothyroxine 88 mcg tablet Take 88 mcg by mouth daily in the morning. Active oxyCODONE (OxyCONTIN) 10 mg Controlled Release 12 hour crush resistant tablet Take 10 mg by mouth 4 times daily. Active ticagrelor (Brilinta) 60 mg Tablet Take 60 mg by mouth 2 times daily. Active Active Problems Problem Noted Date Diagnosed Date Pneumonia of left lower lobe due to infectious o rganism 11/23/2023 Influenza A 11/23/2023 Encounters Date Type Department Care Team Description 03/14/2025 External Device Data [facility] ABSTRACTION Provider, Abstract 02/19/2025 External Device Data [facility] ABSTRACTION Provider, Abstract 02/19/2025 External Device Data [facility] ABSTRACTION Provider, Abstract 02/13/2025 External Device Data [facility] ABSTRACTION Provider, Abstract 01/22/2025 External Device Data [facility] ABSTRACTION Provider, Abstract 01/01/2025 External Device Data [facility] ABSTRACTION Provider, Abstract from Last 3 Months Social History Tobacco Use Types Packs/Day Years Used Date Smoking Tobacco: Former Cigarettes Smokeless Tobacco: Current Tobacco Cessation:Ready to Q uit: Not Asked; Counseling Given: Not Answered Alcohol Use Standard Drinks/Week Comments Not Currently 0 (1 standard drink = 0.6 oz pur e alcohol) Sex and Gender Information Value Date Recorded Sex Assigned at Not on file Legal Sex Male 11:40 AM CDT Gender Identity Not on file Sexual Orientation Not on file Last Filed Vital Signs Vital Sign Reading Time Taken Comments Blood Pressure 120/73 07/22/2024 2:45 PM INSURANCE COMPLIANCE ANALYST Pulse 63 07/22/2024 2:45 PM INSURANCE COMPLIANCE ANALYST Temperature 36.3 C (97.3 F) 07/22/2024 2:45 PM INSURANCE COMPLIANCE ANALYST Respiratory Rate 17 07/22/2024 2:45 PM INSURANCE COMPLIANCE ANALYST Oxygen Saturation 93% 07/22/2024 2:45 PM INSURANCE COMPLIANCE ANALYST Inhaled Oxygen Concentration - - Weight 120.2 kg (265 lb) 07/22/2024 12:20 PM INSURANCE COMPLIANCE ANALYST Height 170.2 cm (5' 7 ) 07/22/2024 12:20 PM INSURANCE COMPLIANCE ANALYST Body Mass Index 41.5 07/22/2024 12:20 PM INSURANCE COMPLIANCE ANALYST Plan of Treatment Health Maintenance Due Date Last Done Comments COLORECTAL SCREENING 1998 Colorectal Cancer Screening 1998 FIT-DNA Q 3 years 1998 FIT/FOBT Q 1 year 1998 Flex Sig/CT Colonography Q 5 years 1998 PNEUMOCOCCAL VACCINE 50+ YEA RS (1 of 1 - PCV) 11/18/2003 ZOSTER VACCINE (1 of 2) 11/18/2003 RSV VACCINE (60+ or ) (1 - Risk 60-74 years 1-dose series) 2013 Abdominal Aortic Aneurysm (A AA) Screening 2018 INFLUENZA VACCINE (#1) 2025 DTAP/TDAP/TD VACCINES (4 - T d or Tdap) 12/11/2031 12/10/2021, 09/07/2011, 08/29/2000 Insurance [facility]
--- NOTE | 2025-03-25 13:54 | ECG_ITS ---
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 Measurements Intervals [place] Rate: 66 P: -1 NC: 196 QRS: -21 QRSD: 134 T: 108 QT: 423 QTc: 446 Interpretive Statements SINUS RHYTHM WITH OCCASIONAL VENTRICULAR PREMATURE COMPLEXES INDETERMINATE AXIS INTRAVENTRICULAR CONDUCTION DELAY [130+ ms QRS DURATION] Compared to ECG 12/24/2024 15:31:12 Ventricular premature complex(es) now present Indeterminate axis now present Right-axis deviation no longer present Electronically Signed On 03-28-2025 10:28:05 CDT by Buster Ndiaye M.D. [id number]
--- NOTE | 2025-03-25 14:04 | XRR_ITS ---
PROCEDURE INFORMATION: Exam: XR Chest Exam date and time: 03/25/2025 2:08 PM Age: 69 years old Clinical indication: Shortness of breath TECHNIQUE: Imaging protocol: Radiologic exam of the chest. Views: 1 view. COMPARISON: No relevant prior studies available. FINDINGS: Lungs: Mild bibasilar reticular markings. No consolidation. Pleural spaces: Small bilateral pleural effusions. No pneumothorax. Heart/Mediastinum: No cardiomegaly. Mediastinal surgical clips. Vasculature: Aortic arch atherosclerotic calcification. Bones/joints: Degenerative changes along the spine and shoulders. Prior median sternotomy. XR/XR chest 1V portable [id number] IMPRESSION: 1. Small bilateral pleural effusions. 2. Mild bibasilar reticular markings may represent edema, atelectasis or scarring.
--- NOTE | 2025-03-25 14:20 | W.ED.SOB ---
HPI - SOB/Dyspnea General: Chief Complaint: Shortness of Breath/Dyspnea Stated Complaint: sob Time Seen by Provider: 03/25/25 14:02 History of Present Illness: HPI Narrative: 69-year-old male presents emergency room complaining of shortness of breath. He has increasing lower edema extremity as well. He is currently getting chemotherapy he is concerned he may have developed a pleural effusion. Patient has a history of CML. He denies any fever sweats chills or productive cough. He has not had any chest pain. Associated symptoms: Reports orthopnea; Deny abdominal pain, chest pain, fever(s) or palpitations Related Data Home Medications ?Medication ?Instructions ?Recorded ?Confirmed diclofenac sodium 1 % topical gel 2 g topical QID PRN Pain 07/03/24 03/25/25 (Voltaren Arthritis Pain) levothyroxine 112 mcg capsule 112 mcg PO DAILY 07/03/24 03/25/25 lisinopril 10 mg tablet 10 mg PO DAILY 07/03/24 03/25/25 oxycodone 10 mg tablet See Rx Instructions .Route 07/03/24 03/25/25 .COMPLEX PRN Pain ticagrelor 90 mg tablet (Brilinta) 90 mg PO BID 07/03/24 03/25/25 aspirin 81 mg tablet,delayed 81 mg PO DAILY 07/17/24 03/25/25 release (Adult Low Dose Aspirin) bosutinib 100 mg capsule (Bosulif) 400 mg PO DAILY 07/17/24 03/25/25 cholecalciferol (vitamin D3) 50 100 mcg PO DAILY 07/17/24 03/25/25 mcg (2,000 unit) capsule vitamin A acetate 3,000 mcg 3,000 mcg PO DAILY 07/17/24 03/25/25 (10,000 unit) sublingual tablet riboflavin (vitamin B2) 50 mg 50 mg PO DAILY 09/04/24 03/25/25 tablet vitamin E (dl, acetate) 45 mg (100 45 mg PO DAILY 12/24/24 03/25/25 unit) capsule atorvastatin 40 mg tablet 40 mg PO QPM 03/25/25 03/25/25 folic acid 0.8 mg capsule 0.8 mg PO DAILY 03/25/25 03/25/25 metoprolol tartrate 25 mg tablet 25 mg PO BID 03/25/25 03/25/25 Previous Rx's ?Medication ?Instructions ?Recorded furosemide 20 mg tablet 20 mg PO DAILY #90 tabs 12/24/24 potassium chloride 10 mEq 10 meq PO DAILY #90 caps 12/24/24 capsule,extended release Allergies Allergy/AdvReac Type Severity Reaction Status Date / Time Penicillins Allergy ALGY-Rash Verified 01/01/25 13:47 Review of Systems Const: Denies: fever(s) or chills Card: Reports: swelling of feet/ankles, dyspnea on exertion and orthopnea; Denies: chest pain or palpitations Resp: Reports: dyspnea GI: Denies: abdominal pain : Denies: dysuria, urinary frequency or urinary urgency Musc: Denies: neck pain or back pain Skin/Breast: Denies: rash PFSH ED PFSH: Family History Daughter Colon polyps Sister Cancer bone cancer Social History Smoking and tobacco/nicotine status: never used tobacco/nicotine Physical Exam Const: GENERAL APPEARANCE: cooperative ORIENTATION/CONSCIOUSNESS: Yes awake, Yes oriented to person, Yes oriented to place and Yes oriented to time HENMT: COMMON NORMALS: normocephalic, atraumatic and hearing grossly normal bilaterally HEAD & SCALP: normocephalic and atraumatic Resp: COMMON NORMALS: normal respiratory effort, No retractions, No use of accessory muscles and clear to auscultation bilaterally AUSCULTATION: clear to auscultation bilaterally Cardio: COMMON NORMALS: regular rate, regular rhythm and No murmurs present (Cardio) RATE: regular rate RHYTHM: regular rhythm GI: COMMON NORMALS: Soft to palpation and No hepatosplenomegaly present AUSCULTATION: Yes normoactive bowel sounds PALPATION: Yes Soft to palpation, No Tenderness to palpation present (GI), No Guarding due to palpation present (GI) and Yes No hepatosplenomegaly present Extremity: COMMON NORMALS: normal to inspection, capillary refill normal, no clubbing, cyanosis or edema, no calf tenderness and no pedal edema Neuro: SENSORIUM/ORIENTATION: Yes oriented to person, Yes oriented to place and Yes oriented to time Skin: COMMON NORMALS: no rashes or lesions noted GENERAL SKIN EXAM: no rashes or lesions noted Course Vital Signs: Vital signs: Vital Signs Temperature 97.7 F 03/25/25 13:49 Pulse Rate 61 03/25/25 16:55 Respiratory Rate 16 03/25/25 16:55 Blood Pressure 126/98 03/25/25 16:55 Pulse Oximetry 93 03/25/25 16:55 Oxygen Delivery Me thod Room Air 03/25/25 16:00 MDM - SOB/Dyspnea Medical Decision Making The patient moderately fluid overloaded but maintaining oxygen sat well. Given IV Lasix here he is feeling much better after diuresis we will increase his Lasix to 40 mg daily for the next 3 days he should then follow-up with his primary care doctor to reassess he will need a BMP and to be reevaluated if he should continue on the higher dose of Lasix for return to his previous dose. Return if he has further problems. Medical Records I reviewed the patient's medical records. Lab Data I reviewed the patient's lab results. 03/25/25 14:13 03/25/25 14:13 Labs/Radiology: Radiology Impressions Chest X-Ray 03/25/25 14:04 IMPRESSION: 1. Small bilateral pleural effusions. 2. Mild bibasilar reticular markings may represent edema, atelectasis or scarring. Laboratory Results WBC 10.69 10^3/uL (3.29-11.43) 03/25/25 14:13 RBC 4.24 10^6/uL (3.85-5.65) 03/25/25 14:13 Hgb 12.20 g/dL (11.27-16.99) 03/25/25 14:13 Hct 37.7 % (37-53) 03/25/25 14:13 MCV 88.9 fl (82-101) 03/25/25 14:13 MCH 28.8 pg (27-33) 03/25/25 14:13 MCHC 32.4 g/dL (30-55) 03/25/25 14:13 RDW 14.4 % (12.1-15.1) 03/25/25 14:13 Plt Count 265 10^3/cmm (157-399) 03/25/25 14:13 MPV 9.5 fL (7.4-10.4) 03/25/25 14:13 Neut % (Auto) 71.0 % 03/25/25 14:13 Lymph % (Auto) 9.8 % 03/25/25 14:13 [place] % (Auto) 9.4 % 03/25/25 14:13 Eos % (Auto) 8.5 % 03/25/25 14:13 Baso % (Auto) 0.7 % 03/25/25 14:13 Neut # (Auto) 7.58 10^3/uL (1.8-7.7) 03/25/25 14:13 Lymph # (Auto) 1.1 10^3/uL (0.8-4.8) 03/25/25 14:13 [place] # (Auto) 1.0 10^3/uL (0.2-0.9) H 03/25/25 14:13 Eos # (Auto) 0.9 10^3/uL (0.0-0.8) H 03/25/25 14:13 Baso # (Auto) 0.1 10^3/uL (0.0-0.1) 03/25/25 14:13 Nucleated RBC % (auto) 0 % 03/25/25 14:13 Nucleated RBCs # 0.0 /100WBC 03/25/25 14:13 ESR 31 mm/hr (0-10) H 03/25/25 14:13 Sodium 136 mmol/L (136-145) 03/25/25 14:13 Potassium 4.3 mmol/L (3.5-5.1) 03/25/25 14:13 Chloride 102 mmol/L (98-107) 03/25/25 14:13 Carbon Dioxide 20 mmol/L (22-29) L 03/25/25 14:13 Anion Gap 18.3 (5-19) 03/25/25 14:13 BUN 23 mg/dL (8-23) 03/25/25 14:13 Creatinine 1.0 mg/dL (0.7-1.2) 03/25/25 14:13 GFR Calculation Not Reportable 03/25/25 14:13 Glucose 101 mg/dL (65-115) 03/25/25 14:13 Calculated Osmolality 286 mOsm/kg (285-295) 03/25/25 14:13 Calcium 9.2 mg/dL (8.5-10.5) 03/25/25 14:13 Total Bilirubin 0.2 mg/dL (0.15-1.2) 03/25/25 14:13 AST 16 U/L (0-40) 03/25/25 14:13 ALT 25 U/L (0-41) 03/25/25 14:13 Alkaline Phosphatase 91 U/L (40-130) 03/25/25 14:13 NT-Pro-B Natriuret Pep 2581 pg/mL (0-125) H 03/25/25 14:13 Total Protein 7.1 g/dL (6.6-8.7) 03/25/25 14:13 Albumin 4.0 g/dL (3.5-5.2) 03/25/25 14:13 Globulin 3.1 g/dL (1.3-4.6) 03/25/25 14:13 Influenza A (PCR) Negative (Negative) 03/25/25 15:11 Influenza Type B (PCR) Negative (Negative) 03/25/25 15:11 RSV (PCR) Negative (Negative) 03/25/25 15:11 SARS-CoV-2 (PCR) Negative (Negative) 03/25/25 15:11 All radiology interpretation(s) finalized by discharge EKG Data EKG 1: Interpretation: EKG 03/25/2025 1354 sinus rhythm with occasional PVC rate of 66 NC 196 [address]Tc [address] No acute ST changes no ST elevation or depression no T wave inversion. EKG 12/24/2024 no significant changes Discharge Plan Discharge Patient Disposition: Home Clinical Impression: Congestive heart failure Chronic myeloid leukemia (CML), BCR/ABL-positive Qualifiers: Leukemia Active/Remission status: in remission Qualified Code(s): C92.11 - Chronic myeloid leukemia, BCR/ABL-positive, in remission Condition: Stable Prescriptions: No Action levothyroxine 112 mcg capsule 112 mcg PO DAILY diclofenac sodium [Voltaren Arthritis Pain] 1 % gel 2 g topical QID PRN (Reason: Pain) Rx Instructions: apply to single elbow, wrist or hand; for hand includes palm/fingers/back of hand Brilinta 90 mg tablet 90 mg PO BID oxycodone 10 mg tablet See Rx Instructions .ROUTE .COMPLEX PRN (Reason: Pain) Rx Instructions: Take 1to 2 tablets by mouth every 4-6 hours as needed for pain lisinopril 10 mg tablet 10 mg PO DAILY riboflavin (vitamin B2) 50 mg tablet 50 mg PO DAILY cholecalciferol (vitamin D3) 50 mcg (2,000 unit) capsule 100 mcg PO DAILY Bosulif 100 mg capsule 400 mg PO DAILY Rx Instructions: administer with meal/food; swallow whole OR open/mix in yogurt/applesauce; do not crush/chew vitamin A acetate 3,000 mcg (10,000 unit) tablet, sublingual 3,000 mcg PO DAILY aspirin [Adult Low Dose Aspirin] 81 mg tablet,delayed release (DR/EC) 81 mg PO DAILY vitamin E (dl, acetate) 45 mg (100 unit) capsule 45 mg PO DAILY furosemide 20 mg tablet 20 mg PO DAILY Qty: 90 3RF potassium chloride 10 mEq capsule, extended release 10 meq PO DAILY Qty: 90 3RF metoprolol tartrate 25 mg tablet 25 mg PO BID atorvastatin 40 mg tablet 40 mg PO QPM folic acid 0.8 mg Capsule 0.8 mg PO DAILY Discharge Orders: Discharge ED (Routine); Ordered 03/25/25 Ordered By: Marco Salazar Referrals: Jacqueline Mackey MD [Primary Care Provider, Family Practice] Discharge Diet: Usual diet Discharge Activity: Resume usual activity Patient Instructions: Opioid Safety, Pain Management, Patient Portal & Lois Instructions Activity Restrictions/Additional Instructions: Thank you for choosing [facility] for your healthcare needs today. It is very important that you follow up as instructed or that you return to the Emergency Department should you have concerns or if your condition changes or worsens in any way. You were seen in the emergency room with complaints of shortness of breath. Your vital signs and oxygen saturation were normal in the emergency room. Chest x-ray did show some pulmonary edema but no pleural effusion. We have given a dose of IV Lasix today in the emergency room recommend you increase your Lasix to 40 mg daily for the next 3 days and then follow-up with your primary care doctor to be reevaluated. They can decide if you should continue on the higher dose or can return to your previous dose. You also need recheck of your electrolytes and kidney function at your follow-up. Print Language: Monegasque Coding Level of Care Code ED Harvest Crew Supervisor for Debbie Frazier
[2025-03-25 14:25] LABS: Hematocrit 37.7 % (37-53); Hemoglobin 12.20 g/dL (11.27-16.99); Mean Corpuscular HGB Conc 32.4 g/dL (30-55); Mean Corpuscular Hemoglobin 28.8 pg (27-33); Mean Corpuscular Volume 88.9 fl (82-101); Nucleated Red Blood Cells % 0 %; Platelet Count 265 10^3/cmm (157-399); Red Blood Count 4.24 10^6/uL (3.85-5.65); White Blood Count 10.69 10^3/uL (3.29-11.43)
[2025-03-25 14:42] LABS: Alanine Aminotransferase 25 U/L (0-41); Albumin Level 4.0 g/dL (3.5-5.2); Alkaline Phosphatase 91 U/L (40-130); Anion Gap 18.3 (5-19); Aspartate Amino Transferase 16 U/L (0-40); Blood Urea Nitrogen 23 mg/dL (8-23); Calcium 9.2 mg/dL (8.5-10.5); Carbon Dioxide 20 mmol/L (22-29); Chloride 102 mmol/L (98-107); Creatinine Clr Calc Pharmacy 81.4767; Globulin 3.1 g/dL (1.3-4.6); Glucose 101 mg/dL (65-115); Osmolality Calculated 286 mOsm/kg (285-295); Potassium 4.3 mmol/L (3.5-5.1); Sodium 136 mmol/L (136-145); Total Protein 7.1 g/dL (6.6-8.7)
[2025-03-25 14:54] VITALS: PULSE 67; RESP 18; O2SAT 96
[2025-03-25] MEDS: methylPREDNISolone sod succ 125 mg/2 mL INJ IV (15:02)
[2025-03-25 15:14] VITALS: BP 137/81; PULSE 67; RESP 18; O2SAT 96
[2025-03-25 15:17] LABS: NT Pro B Type Natriuretic Pept 2581 pg/mL (0-125)
[2025-03-25 15:47] VITALS: BP 157/71; PULSE 64; RESP 16; O2SAT 94
[2025-03-25 15:55] LABS: Respiratory Syncytial Virus Ce NEGATIVE (Negative); SARS-CoV-2 PCR NEGATIVE (Negative)
[2025-03-25 16:00] VITALS: BP 149/81; PULSE 64; RESP 16; O2SAT 95
[2025-03-25] MEDS: FUROsemide 10 mg/mL SDV 4mL 40 MG IVP (16:50)
[2025-03-25 16:55] VITALS: BP 126/98; PULSE 61; RESP 16; O2SAT 93
== END 2025-03-25 16:56 | disposition home or self-care (01) ==
PROVIDERS: Emergency Provider Family Medicine; PCP Family Medicine
DX: C92.11 Chronic myeloid leukemia, BCR/ABL-positive, in remission (principal); I50.9 Heart failure, unspecified; Z11.52 Encounter for screening for COVID-19; Z79.82 Long term (current) use of aspirin
CPT/HCPCS: 36415; 71045; 80053; 83880; 85025; 85651; 87637; 93005; 94640; 96374; 96375; 99285; J1938; J2919; J9999

== ENCOUNTER 2025-03-26 13:53 | Oncology outpatient (recurring) (ONCR) | payer OTHER, SELFPAY ==
[2025-03-26 14:34] LABS: Hematocrit 36.8 % (37-53); Hemoglobin 12.10 g/dL (11.27-16.99); Mean Corpuscular HGB Conc 32.9 g/dL (30-55); Mean Corpuscular Hemoglobin 28.7 pg (27-33); Mean Corpuscular Volume 87.2 fl (82-101); Nucleated Red Blood Cells % 0 %; Platelet Count 333 10^3/cmm (157-399); Red Blood Count 4.22 10^6/uL (3.85-5.65); White Blood Count 20.34 10^3/uL (3.29-11.43)
[2025-03-26 14:52] LABS: Alanine Aminotransferase 30 U/L (0-41); Albumin Level 4.3 g/dL (3.5-5.2); Alkaline Phosphatase 90 U/L (40-130); Anion Gap 19.4 (5-19); Aspartate Amino Transferase 60 U/L (0-40); Blood Urea Nitrogen 35 mg/dL (8-23); Calcium 9.5 mg/dL (8.5-10.5); Carbon Dioxide 20 mmol/L (22-29); Chloride 102 mmol/L (98-107); Globulin 3.1 g/dL (1.3-4.6); Glucose 116 mg/dL (65-115); Osmolality Calculated 293 mOsm/kg (285-295); Potassium 4.4 mmol/L (3.5-5.1); Sodium 137 mmol/L (136-145); Total Protein 7.4 g/dL (6.6-8.7)
[2025-03-29 21:35] LABS: BCR ABL1 (IS) 0.000 (0.000); P210 BCR ALB1 NOT DETECTED; P210 BCR ALB1 Yes Test Yes; Source blood
== END 2025-03-28 23:59 | disposition home or self-care (01) ==
LOC: ONCMED 13:53
PROVIDERS: PCP Family Medicine; Visit Provider Internal Medicine Medical Oncology
DX: C92.11 Chronic myeloid leukemia, BCR/ABL-positive, in remission (principal); R60.9 Edema, unspecified; Z79.899 Other long term (current) drug therapy
CPT/HCPCS: 36415; 80053; 81206; 85025

== ENCOUNTER 2025-03-28 07:05 | Inpatient (IN) | payer OTHER, MEDICARE, SELFPAY ==
[2025-03-28] VITALS (15 sets, daily range): BP systolic 86–125; BP diastolic 52–74; PULSE 50–65; RESP 15–21; TEMP 36.1–36.8; O2SAT 90–97
--- NOTE | 2025-03-28 07:09 | ECG_ITS ---
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 Measurements Intervals [place] Rate: 53 P: 0 NM: 206 QRS: -32 QRSD: 136 T: 123 QT: 477 QTc: 449 Interpretive Statements SINUS BRADYCARDIA INDETERMINATE AXIS INTRAVENTRICULAR CONDUCTION DELAY [130+ ms QRS DURATION] Compared to ECG 03/25/2025 13:54:35 Sinus rhythm no longer present Ventricular premature complex(es) no longer present Electronically Signed On 03-28-2025 10:20:38 CDT by Buster Ndiaye M.D. [email or web address] [id number]
--- NOTE | 2025-03-28 07:28 | XR_ITS ---
WS: [id number] Portable AP upright chest, 03/28/2025 Clinical Data: dyspnea/cough Comparison: Portable chest, 03/25/2025 Findings: There are bilateral basilar patchy opacities unchanged. The pulmonary vascularity is not increased. No pneumonia or pneumothorax is seen. The heart is slightly enlarged. The aortic arch shows mild tortuosity. Midline sternotomy sutures are seen. 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 Monitor leads are on the chest wall. XR/XR chest 1V portable [id number] Impression: 1. No change in bibasilar patchy opacities which could represent effusion, atel ectasis or even pneumonia. 2. Cardiomegaly and atherosclerosis.
--- NOTE | 2025-03-28 07:31 | W.ED.SOB ---
HPI - SOB/Dyspnea General: Chief Complaint: Shortness of Breath/Dyspnea Stated Complaint: SOB Time Seen by Provider: 03/28/25 07:13 History of Present Illness: HPI Narrative: 69-year-old male presents emergency room with complaints of shortness of breath he was seen a few days ago had some fluid overload he was given IV Lasix and improved he was discharged home on increased dose of Lasix. Patient is concerned he had pleural effusions at the time and only very small pleural effusions nothing amenable to thoracentesis. Returns today with similar complaints of orthopnea shortness of breath and leg swelling. Associated symptoms: Reports chest congestion and orthopnea; Deny abdominal pain, chest pain or fever(s) Related Data Home Medications ?Medication ?Instructions ?Recorded ?Confirmed diclofenac sodium 1 % topical gel 2 g topical QID PRN Pain 07/03/24 03/25/25 (Voltaren Arthritis Pain) levothyroxine 112 mcg capsule 112 mcg PO DAILY 07/03/24 03/25/25 lisinopril 10 mg tablet 10 mg PO DAILY 07/03/24 03/25/25 oxycodone 10 mg tablet See Rx Instructions .Route 07/03/24 03/25/25 .COMPLEX PRN Pain ticagrelor 90 mg tablet (Brilinta) 90 mg PO BID 07/03/24 03/25/25 aspirin 81 mg tablet,delayed 81 mg PO DAILY 07/17/24 03/25/25 release (Adult Low Dose Aspirin) bosutinib 100 mg capsule (Bosulif) 400 mg PO DAILY 07/17/24 03/25/25 cholecalciferol (vitamin D3) 50 100 mcg PO DAILY 07/17/24 03/25/25 mcg (2,000 unit) capsule vitamin A acetate 3,000 mcg 3,000 mcg PO DAILY 07/17/24 03/25/25 (10,000 unit) sublingual tablet riboflavin (vitamin B2) 50 mg 50 mg PO DAILY 09/04/24 03/25/25 tablet vitamin E (dl, acetate) 45 mg (100 45 mg PO DAILY 12/24/24 03/25/25 unit) capsule atorvastatin 40 mg tablet 40 mg PO QPM 03/25/25 03/25/25 folic acid 0.8 mg capsule 0.8 mg PO DAILY 03/25/25 03/25/25 metoprolol tartrate 25 mg tablet 25 mg PO BID 03/25/25 03/25/25 Previous Rx's ?Medication ?Instructions ?Recorded furosemide 20 mg tablet 20 mg PO DAILY #90 tabs 12/24/24 potassium chloride 10 mEq 10 meq PO DAILY #90 caps 12/24/24 capsule,extended release Allergies Allergy/AdvReac Type Severity Reaction Status Date / Time Penicillins Allergy ALGY-Rash Verified 01/01/25 13:47 Review of Systems Const: Denies: fever(s) or chills Card: Reports: edema, swelling of feet/ankles, dyspnea on exertion and orthopnea; Denies: chest pain Resp: Reports: dyspnea and chest congestion GI: Denies: abdominal pain : Denies: dysuria, urinary frequency or urinary urgency Musc: Denies: neck pain or back pain Skin/Breast: Denies: rash PFSH ED PFSH: Family History Daughter Colon polyps Sister Cancer bone cancer Social History Smoking and tobacco/nicotine status: never used tobacco/nicotine Physical Exam Const: GENERAL APPEARANCE: cooperative ORIENTATION/CONSCIOUSNESS: Yes awake, Yes oriented to person, Yes oriented to place and Yes oriented to time HENMT: COMMON NORMALS: normocephalic, atraumatic and hearing grossly normal bilaterally HEAD & SCALP: normocephalic and atraumatic Resp: COMMON NORMALS: normal respiratory effort, No retractions, No use of accessory muscles and clear to auscultation bilaterally AUSCULTATION: clear to auscultation bilaterally Cardio: COMMON NORMALS: regular rate, regular rhythm and No murmurs present (Cardio) RATE: regular rate RHYTHM: regular rhythm GI: COMMON NORMALS: Soft to palpation and No hepatosplenomegaly present AUSCULTATION: Yes normoactive bowel sounds PALPATION: Yes Soft to palpation, No Tenderness to palpation present (GI), No Guarding due to palpation present (GI) and Yes No hepatosplenomegaly present Extremity: COMMON NORMALS: normal to inspection, capillary refill normal and no calf tenderness GENERAL: Yes edema (Lower extremity bilateral) Neuro: SENSORIUM/ORIENTATION: Yes oriented to person, Yes oriented to place and Yes oriented to time Skin: COMMON NORMALS: no rashes or lesions noted GENERAL SKIN EXAM: no rashes or lesions noted Course Vital Signs: Vital signs: Vital Signs Temperature 97.8 F 03/28/25 07:10 Pulse Rate 50 L 03/28/25 10:02 Respiratory Rate 21 H 03/28/25 10:02 Blood Pressure 102/61 03/28/25 10:02 Pulse Oximetry 91 03/28/25 10:02 Oxygen Delivery Me thod Room Air 03/28/25 10:02 MDM - SOB/Dyspnea Medical Decision Making Patient troponin initially quite elevated but is very concerned that he may have a PE. We started him on heparin his second troponin is down decreased by 239 points. He has no chest pain his EKG is unchanged when he was seen earlier in the week and he had no chest pain at that time either. On his CT there is no evidence of pulmonary embolism there is signs of right-sided heart strain in January of this year he had an echocardiogram that showed ejection fraction of 35% severe aortic stenosis evaluate valve area of 1.1 but no right sided heart failure was read as normal right ventricular size and function. On the CT it seems that this has changed he has some hepatic vein reflux due to right-sided heart failure per Dr. Blake. When he initially arrived his blood pressure was in the 120s he was given Lasix his blood pressure did decrease and then began to rebound he got as low as 80 systolic spike up to a little over 100 at this time. Will admit the patient discussed with hospitalist consult business objects analyst. Medical Records I reviewed the patient's medical records. Lab Data I reviewed the patient's lab results. 03/28/25 07:21 03/28/25 07:21 Labs/Radiology: Radiology Impressions Chest X-Ray 03/28/25 07:28 Impression: 1. No change in bibasilar patchy opacities which could represent effusion, atelectasis or even pneumonia. 2. Cardiomegaly and atherosclerosis. Chest CTA 03/28/25 08:01 IMPRESSION: 1. No evidence for pulmonary embolus. 2. Moderate RIGHT and small LEFT pleural effusions. 3. Loculated pleural fluid/nodular pleural thickening along the RIGHT lower lobe laterally extending along the mediastinum to the lung apex. This may be benign trapped fluid but neoplasm should be excluded. 4. Compressive atelectasis RIGHT lower lobe. 5. Hazy groundglass attenuation throughout both lungs may be infectious or inflammatory versus pulmonary edema 6. Cardiomegaly. 7. Contrast reflux into the hepatic veins can be seen with RIGHT heart dysfunction Notified Marco Salazar DO at 03/28/2025 9:37 AM. Laboratory Results WBC 12.62 10^3/uL (3.29-11.43) H 03/28/25 07:21 RBC 4.45 10^6/uL (3.85-5.65) 03/28/25 07:21 Hgb 12.70 g/dL (11.27-16.99) 03/28/25 07:21 Hct 39.0 % (37-53) 03/28/25 07:21 MCV 87.6 fl (82-101) 03/28/25 07:21 MCH 28.5 pg (27-33) 03/28/25 07:21 MCHC 32.6 g/dL (30-55) 03/28/25 07:21 RDW 14.5 % (12.1-15.1) 03/28/25 07:21 Plt Count 361 10^3/cmm (157-399) 03/28/25 07:21 MPV 9.5 fL (7.4-10.4) 03/28/25 07:21 Neut % (Auto) 69.8 % 03/28/25 07:21 Lymph % (Auto) 14.2 % 03/28/25 07:21 [place] % (Auto) 9.1 % 03/28/25 07:21 Eos % (Auto) 5.4 % 03/28/25 07:21 Baso % (Auto) 0.8 % 03/28/25 07:21 Neut # (Auto) 8.81 10^3/uL (1.8-7.7) H 03/28/25 07:21 Lymph # (Auto) 1.8 10^3/uL (0.8-4.8) 03/28/25 07:21 [place] # (Auto) 1.2 10^3/uL (0.2-0.9) H 03/28/25 07:21 Eos # (Auto) 0.7 10^3/uL (0.0-0.8) 03/28/25 07:21 Baso # (Auto) 0.1 10^3/uL (0.0-0.1) 03/28/25 07:21 Nucleated RBC % (auto) 0 % 03/28/25 07:21 Nucleated RBCs # 0.0 /100WBC 03/28/25 07:21 APTT 29.9 SECONDS (23.9-36.7) 03/28/25 07:21 Sodium 137 mmol/L (136-145) 03/28/25 07:21 Potassium 4.8 mmol/L (3.5-5.1) 03/28/25 07:21 Chloride 101 mmol/L (98-107) 03/28/25 07:21 Carbon Dioxide 21 mmol/L (22-29) L 03/28/25 07:21 Anion Gap 19.8 (5-19) H 03/28/25 07:21 BUN 31 mg/dL (8-23) H 03/28/25 07:21 Creatinine 1.2 mg/dL (0.7-1.2) 03/28/25 07:21 GFR Calculation Not Reportable 03/28/25 07:21 Glucose 112 mg/dL (65-115) 03/28/25 07:21 Calculated Osmolality 291 mOsm/kg (285-295) 03/28/25 07:21 Calcium 9.4 mg/dL (8.5-10.5) 03/28/25 07:21 Total Bilirubin 0.4 mg/dL (0.15-1.2) 03/28/25 07:21 AST 47 U/L (0-40) H 03/28/25 07:21 ALT 38 U/L (0-41) 03/28/25 07:21 Alkaline Phosphatase 102 U/L (40-130) 03/28/25 07:21 Troponin T Baseline 2119 ng/L (0-15) H* 03/28/25 07:21 Troponin T 120 Minute 1880 ng/L (0-15) H 03/28/25 09:33 Delta Troponin T -239 ABS# (0-10) L 03/28/25 09:33 NT-Pro-B Natriuret Pep 2406 pg/mL (0-125) H 03/28/25 07:21 Total Protein 7.1 g/dL (6.6-8.7) 03/28/25 07:21 Albumin 4.2 g/dL (3.5-5.2) 03/28/25 07:21 Globulin 2.9 g/dL (1.3-4.6) 03/28/25 07:21 Urine Color Yellow (Yellow) 03/28/25 08:28 Urine Appearance Clear (CLEAR) 03/28/25 08:28 Urine pH 5.0 (5-7) 03/28/25 08:28 Ur Specific [place] 1.008 (1.005-1.030) 03/28/25 08:28 Urine Protein Negative (Negative) 03/28/25 08:28 Urine Glucose (UA) Negative (Normal) 03/28/25 08:28 Urine Ketones Negative (Negative) 03/28/25 08:28 Urine Blood Negative (Negative) 03/28/25 08:28 Urine Nitrate Negative (Negative) 03/28/25 08:28 Urine Bilirubin Negative (Negative) 03/28/25 08:28 Urine Urobilinogen 0.2 mg/dL (Negative) 03/28/25 08:28 Ur Leukocyte Esterase Negative (Negative) 03/28/25 08:28 Urine RBC 0-2 /hpf (0-2) 03/28/25 08:28 Urine WBC 0-5 /hpf (0-5) 03/28/25 08:28 Ur Squamous Epith Cells 0-5 /hpf (0-5) 03/28/25 08:28 Amorphous Sediment Not Reportable 03/28/25 08:28 Urine Bacteria None seen /hpf (NONE) 03/28/25 08:28 Hyaline Casts 0.81 /lpf 03/28/25 08:28 All radiology interpretation(s) finalized by discharge EKG Data EKG 1: Interpretation: EKG 03/28/2025 7:27 AM sinus bradycardia with a rate of 53 [place] interval 206 QTc 4 6 intraventricular conduction delay. No acute ST changes no significant change from previous EKG on 03/25/2025 Discharge Plan Discharge Patient Disposition: Admitted As Inpatient Clinical Impression: Acute right-sided CHF (congestive heart failure), Chronic myeloid leukemia (CML), BCR/ABL-positive Condition: Stable Coding Level of Care Code ED Automobile Mechanic Assistant for Chg Karin
[2025-03-28 07:43] LABS: Hematocrit 39.0 % (37-53); Hemoglobin 12.70 g/dL (11.27-16.99); Mean Corpuscular HGB Conc 32.6 g/dL (30-55); Mean Corpuscular Hemoglobin 28.5 pg (27-33); Mean Corpuscular Volume 87.6 fl (82-101); Nucleated Red Blood Cells % 0 %; Platelet Count 361 10^3/cmm (157-399); Red Blood Count 4.45 10^6/uL (3.85-5.65); White Blood Count 12.62 10^3/uL (3.29-11.43)
[2025-03-28] MEDS: FUROsemide 10 mg/mL SDV 4mL 40 MG IVP ×2 (07:44→17:11)
--- NOTE | 2025-03-28 07:44 | PC.NURSE ---
pt given urinal, educated on need for urine sample; states will attempt shortly, pt urinated on arrival to ED
[2025-03-28 07:53] LABS: Alanine Aminotransferase 38 U/L (0-41); Albumin Level 4.2 g/dL (3.5-5.2); Alkaline Phosphatase 102 U/L (40-130); Aspartate Amino Transferase 47 U/L (0-40); Blood Urea Nitrogen 31 mg/dL (8-23); Calcium 9.4 mg/dL (8.5-10.5); Carbon Dioxide 21 mmol/L (22-29); Chloride 101 mmol/L (98-107); Creatinine Clr Calc Pharmacy 68.7668; Globulin 2.9 g/dL (1.3-4.6); Glucose 112 mg/dL (65-115); Osmolality Calculated 291 mOsm/kg (285-295); Sodium 137 mmol/L (136-145); Total Protein 7.1 g/dL (6.6-8.7)
[2025-03-28 07:56] LABS: Anion Gap 19.8 (5-19); Potassium 4.8 mmol/L (3.5-5.1)
[2025-03-28 07:57] LABS: Troponin(5th) Baseline 2119 ng/L (0-15)
--- NOTE | 2025-03-28 08:01 | CT_ITS ---
WS: [id number] CTA OF THE CHEST WITH PULMONARY EMBOLISM PROTOCOL TECHNIQUE: High-resolution contrast enhanced CTA of the chest with coronal and sagittal reformatted images with pulmonary embolism protocol. MIP images are also reviewed. CLINICAL INFORMATION: Shortness of breath on exertion COMPARISON: None. DLP: 516.[address] scans at [facility] use at least one of these dose optimization techniques: automated exposure control; mA and/or kV adjustment per patient size (includes targeted exams where dose is matched to clinical indication); or iterative reconstruction. FINDINGS: Proximal main pulmonary arteries are normal. Normal segmental and subsegmental pulmonary arteries. No evidence of pulmonary embolus. Cardiomegaly. Moderate RIGHT and small LEFT pleural effusions. Fluid along the RIGHT fissure extending along the mediastinum to the RIGHT lung apex with nodular pleural thickening. Hazy groundglass attenuation throughout both lungs may be infectious or inflammatory. Shallow inspiration. Some of this may be due to pulmonary edema. Sternotomy. CABG. Coronary calcification. Contrast reflux into the hepatic veins can be seen with RIGHT heart failure. Small esophageal hiatal hernia. Adrenal glands are normal. Moderate thoracic kyphosis. Hypertrophic changes thoracic spine. CT/CT angio chest PE protcl [id number] IMPRESSION: 1. No evidence for pulmonary embolus. 2. Moderate RIGHT and small LEFT pleural effusions. 3. Loculated pleural fluid/nodular pleural thickening along the RIGHT lower lo be laterally extending along the mediastinum to the lung apex. This may be kristopher gn trapped fluid but neoplasm should be excluded. 4. Compressive atelectasis RIGHT lower lobe. 5. Hazy groundglass attenuation throughout both lungs may be infectious or inf lammatory versus pulmonary edema 6. Cardiomegaly. 7. Contrast reflux into the hepatic veins can be seen with RIGHT heart dysfunc tion Notified Marco Salazar DO at 03/28/2025 9:37 AM.
--- NOTE | 2025-03-28 08:04 | PC.PHAR ---
[facility] 03/28/25 8:05am
[2025-03-28] MEDS: heparin drip 25,000 UNIT/500 ML PREMIX 32 UNIT IV (08:28)
[2025-03-28] MEDS: heparin 5,000 unit/mL INJ 1 mL IVP (08:29)
[2025-03-28 08:41] LABS: NT Pro B Type Natriuretic Pept 2406 pg/mL (0-125)
[2025-03-28 08:42] LABS: Glucose Urine UA Negative (Normal); Nitrate Urine Negative (Negative); Specific Gravity, Urine 1.008 (1.005-1.030)
[2025-03-28 08:44] LABS: Add Urine Microscopic? YES
[2025-03-28] MEDS: iohexol 350 mg/mL 500 mL Btl (per mL) IV (09:15)
--- NOTE | 2025-03-28 09:17 | PC.NURSE ---
pt in CT at this time
--- NOTE | 2025-03-28 09:28 | ECG_ITS ---
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 Measurements Intervals [place] Rate: 53 P: -2 WI: 210 QRS: 44 QRSD: 146 T: 132 QT: 486 QTc: 457 Interpretive Statements SINUS BRADYCARDIA WITH FIRST DEGREE AV BLOCK INDETERMINATE AXIS INTRAVENTRICULAR CONDUCTION DELAY [130+ ms QRS DURATION] Compared to ECG 03/28/2025 07:27:16 First degree AV block now present Electronically Signed On 03-28-2025 10:28:32 CDT by Buster Ndiaye M.D. [email or web address]
[2025-03-28 09:32] LABS: Partial Thromboplastin Time 29.9 SECONDS (23.9-36.7)
[2025-03-28 10:09] LABS: Troponin 5 2HR Delta -239 ABS# (0-10)
[2025-03-28 10:10] LABS: Troponin 5 2HR 1880 ng/L (0-15)
--- NOTE | 2025-03-28 10:18 | PM.HP ---
Providers/Chief Complaint Primary Care Provider: Jacqueline Mackey MD Chief Complaint: SOB History of Present Illness Emir Mcmullen is a 69 year old male gentleman with chronic myeloid leukemia (CML) on bosutinib who presents after an emergency department (ED) visit earlier this week for worsening shortness of breath. At the prior visit on March 25 he was found to have a right-sided pleural effusion and received intravenous furosemide with symptomatic improvement; his outpatient furosemide dose was also increased. Today he reports recurrent orthopnea, leg swelling, and inability to sleep for 7?8 days due to dyspnea. En-route to the hospital he became markedly short of breath again. Review of ED data shows oxygen saturation 91%, blood pressure 86/58 mmHg, white blood cell count 0.62 K/?L (previously 20 K/?L), high-sensitivity troponin 2,119 ng/L, N-terminal pro-brain natriuretic peptide 2,406 pg/mL, and electrocardiogram with sinus bradycardia, first-degree atrioventricular block, and intraventricular conduction delay. Chest radiograph demonstrated cardiomegaly and bilateral patchy opacities with effusions; computed tomography angiogram revealed no pulmonary embolism but moderate right and small left pleural effusions, compressive atelectasis, ground-glass opacities, and a focal pleural-based lesion raising concern for trapped fluid versus neoplasm. The patient notes chronic low heart rates (40s) and is taking metoprolol 25 mg twice daily. He also reports prior pleural disease requiring thoracenteses and biopsy demonstrating mesothelial-type cells. [id number] discussion held; he desires full resuscitation unless brain is certain and designates his daughter (a nurse) as medical power of mix maker. Review of Systems Const: Denies: fever(s), chills, body aches or malaise ENMT: Denies: throat pain Card: Reports: dyspnea on exertion and orthopnea; Denies: chest pain, edema or pre-syncope Resp: Reports: dyspnea; Denies: productive cough, change in phlegm color or hemoptysis GI: Denies: abdominal pain, nausea, vomiting, diarrhea, constipation, hematochezia or melena : Denies: flank pain, difficulty urinating, urinary frequency or hematuria Musc: Denies: back pain, joint swelling or joint redness Skin/Breast: Denies: rash or new lesions Neuro: Denies: headache(s) or confusion Medications/Allergies Home Medications ?Medication ?Instructions ?Recorded ?Confirmed ?Last Taken ?Type levothyroxine 112 mcg capsule 112 mcg PO DAILY 07/03/24 03/28/25 03/27/25 History lisinopril 10 mg tablet 10 mg PO DAILY 07/03/24 03/28/25 03/27/25 History oxycodone 10 mg tablet 10 - 20 mg PO .Q4-6H PRN Pain 07/03/24 03/28/25 03/25/25 History ticagrelor 90 mg tablet (Brilinta) 90 mg PO BID 07/03/24 03/28/25 03/27/25 History bosutinib 100 mg capsule (Bosulif) 400 mg PO DAILY 07/17/24 03/28/25 03/27/25 History cholecalciferol (vitamin D3) 50 100 mcg PO DAILY 07/17/24 03/28/25 03/27/25 History mcg (2,000 unit) capsule vitamin A acetate 3,000 mcg 3,000 mcg PO DAILY 07/17/24 03/28/25 03/27/25 History (10,000 unit) sublingual tablet riboflavin (vitamin B2) 50 mg 50 mg PO DAILY 09/04/24 03/28/25 03/27/25 History tablet furosemide 20 mg tablet 20 mg PO DAILY #90 tabs 12/24/24 03/28/25 03/27/25 Rx potassium chloride 10 mEq 10 meq PO DAILY #90 caps 12/24/24 03/28/25 03/27/25 Rx capsule,extended release vitamin E (dl, acetate) 45 mg (100 45 mg PO DAILY 12/24/24 03/28/25 03/27/25 History unit) capsule atorvastatin 40 mg tablet 40 mg PO QPM 03/25/25 03/28/25 03/27/25 History metoprolol tartrate 25 mg tablet 25 mg PO BID 03/25/25 03/28/25 03/27/25 History folic acid 400 mcg tablet 0.4 mg PO DAILY 03/28/25 03/28/25 03/27/25 History triamcinolone acetonide 0.1 % 1 applic topical BID PRN Skin 03/28/25 03/28/25 Unknown History topical ointment Irritation Allergies Allergy/AdvReac Type Severity Reaction Status Date / Time Penicillins Allergy ALGY-Rash Verified 01/01/25 13:47 [id number] Reductase AdvReac Intermediate ALGY-Joint Unverified 03/28/25 13:59 Inhibitor Pain PFSH Acute PFSH: Medical History Arteriosclerotic heart disease (ASHD) Surgical History History of open heart surgery 4 stent placement -2008 Hx of appendectomy Hx of inguinal hernia repair x2 Hx of knee surgery bilat Family History Daughter Colon polyps Sister Cancer bone cancer Social History Smoking and tobacco/nicotine status: never used tobacco/nicotine Vitals/I&O/Wt Last Vital Signs Temp 97.8 F 03/28/25 07:10 Pulse 50 L 03/28/25 10:02 Resp 21 H 03/28/25 10:02 BP 102/61 03/28/25 10:02 Pulse Ox 91 03/28/25 10:02 O2 Del Method Room Air 03/28/25 10:02 Weight last 48 hrs Weight 116.12 kg Physical Exam Narrative: Sitting up in wheelchair. Const: COMMON NORMALS: patient oriented x3 and alert GENERAL APPEARANCE: cooperative ORIENTATION/CONSCIOUSNESS: Yes awake HENMT: COMMON NORMALS: oropharynx normal Neck/C-Spine: COMMON NORMALS: no JVD Resp: COMMON NORMALS: normal respiratory effort and clear to auscultation bilaterally AUSCULTATION: diminished lung sounds bilateral in the lower lung [place]ina Cardio: COMMON NORMALS: no JVD, regular rhythm, S1 normal heart sound present, S2 normal heart sound present and No murmurs present (Cardio) RHYTHM: regular rhythm HEART SOUNDS: S1 normal heart sound present and S2 normal heart sound present GI: COMMON NORMALS: Normal to inspection, nondistended, normoactive bowel sounds present, Soft to palpation and non-tender PALPATION: Yes Soft to palpation Extremity: COMMON NORMALS: no joint enlargement GENERAL: Yes edema Neuro: COMMON NORMALS: patient oriented x3 and moves all extremities SENSORIUM/ORIENTATION: Yes alert Skin: COMMON NORMALS: no rashes or lesions noted GENERAL SKIN EXAM: no rashes or lesions noted Data 03/28/25 07:21 03/28/25 07:21 A&P Assessment and plan 1. Systolic and diastolic CHF, acute on chronic: Acute decompensated systolic and diastolic heart failure : Orthopnea, bilateral lower-extremity edema, pleural effusions; EF 35%; elevated NT-proBNP; volume overload with soft blood pressure. Reviewed last echocardiogram. With noted troponin elevation, possible NSTEMI. Reviewed vitals, CBC, PTT, CMP, troponin, UA, influenza, COVID, RSV, CTA chest, chest x-ray, EKG, ED provider note, discussed with ED provider, discussed with cardiology. - Continue intravenous furosemide; cautiously diurese because of low blood pressure. - Monitor kidney function and electrolytes during diuresis with risk of deficiency, arrhythmia. Monitor on telemetry. - Check oxygen saturation and adjust supplemental O2 as needed. 2. Atherosclerotic heart disease: Troponin elevation with possible NSTEMI. With shortness of breath, acute CHF. Troponin 2119 at baseline. 2-hour troponin 1880. Complete troponin EKG series. Obtain limited echocardiogram. Monitor on telemetry with risk of arrhythmia. Treat CHF and optimize cardiac status. Discussed with cardiology, labs volume status optimized consideration of further assessment with coronary angiography. -Continue aspirin, Brilinta. Cut down beta-jake dose. He has stopped statin stating it has been giving him muscle and joint pains. Plan: Moderate aortic stenosis : Known valve disease contributing to dyspnea; recent echocardiogram in January 2025 showed moderate stenosis. Monitor for risk of hypotension. - Optimize volume status first; cardiology to reassess valve once euvolemic. - No immediate surgical intervention planned while inpatient. Pleural effusion : CT chest shows moderate right and small left pleural effusions and a focal pleural-based abnormality possibly trapped fluid versus neoplasm. - Diuresis as above. - Consider repeat imaging Incidentally noted nodule versus fluid loculation along the right lower lobe. He does report some history of pleural biopsy with some mesothelial cells noted in the past although states this was on the left side. - Refer to pulmonology for evaluation and follow-up imaging and consideration of biopsy. Bradycardia and hypotension on beta-jake and EDWARD inhibitor : Resting heart rates in 40s; BP 86/58 mmHg while on metoprolol 25 mg BID and lisinopril. - Reduce metoprolol to half-tablet dosing (12.5 mg) twice daily while inpatient; monitor heart rate. - Hold or reduce lisinopril temporarily due to hypotension until blood pressure improves. - Continue blood pressure checks. Chronic myeloid leukemia (CML) : Stable on bosutinib 400 mg daily; leukopenia noted today (WBC 0.62 K/?L) compared with previous leukocytosis. Continue follow-up with hematology. PDMP PDMP Reviewed: Not Reviewed Attestations Medical Necessity Statement*: Admission over 2 midnights anticipated for assessment management of acute systolic and diastolic CHF in a gentleman with underlying moderate aortic stenosis. and High MDM includes amount and/or complexity of data reviewed/ordered [ previous or external records, resulted lab(s)/test(s), ordered lab(s)/test(s) and other healthcare professional discussion] and described risk of complication, morbidity or mortality of management as documented Diagnoses Systolic and diastolic CHF, acute on chronic I50.43 Atherosclerotic heart disease I25.10
--- NOTE | 2025-03-28 10:33 | PC.NURSE ---
educated pt on NPO diet order
[2025-03-28 10:54] LABS: Respiratory Syncytial Virus Ce NEGATIVE (Negative); SARS-CoV-2 PCR NEGATIVE (Negative)
--- NOTE | 2025-03-28 11:07 | PC.NURSE ---
provided pt with water and sandwich per verbal order from Dr. العلي for cardiac diet
--- NOTE | 2025-03-28 11:12 | USCV_ITS ---
[facility] Age: 69 Gender: M : 1955 Exam Date: 03/28/2025 11:50 Ordering Phys: Shae Cates Technologist: Exam Location: [facility] [place] Indication: chf BP: 90 / 49 HR: Rhythm: Sinus Technical Quality: MEASUREMENTS (Male / Female) Normal Values 2D ECHO LV Diastolic Diameter PLAX 5.3 cm 4.2 - 5.9 / 3.9 - 5.3 cm IVS Diastolic Thickness 1.2 cm 0.6 - 1.0 / 0.6 - 0.9 cm IVS Systolic Thickness 1.9 cm LVPW Diastolic Thickness 1.6 cm 0.6 - 1.0 / 0.6 - 0.9 cm LVPW Systolic Thickness 1.7 cm LVOT Diameter 2.0 cm LV Ejection Fraction 2D Teich 33.6 % LV Ejection Fraction MOD 4C 56.0 % LV Ejection Fraction MOD 2C 52.6 % LV Ejection Fraction 2C AL 53.9 % LA Diameter 5.2 cm Aorta at Sinotubular Diameter 2.8 cm M-MODE LA Ao Ratio MM 1.3 AV Cusp Separation MM 1.4 cm FINDINGS Left Ventricle Mildly increased left ventricular cavity size. Severely decreased left ventricular systolic function. Left ventricular ejection fraction is estimated at 25 -30 %. Global left ventricular hypokinesis. Right Ventricle Right Atrium Left Atrium Mitral Valve Aortic Valve Severe aortic valve calcification. It is appeared to bw moderately to severely stenotic. Tricuspid Valve Pulmonic Valve Pericardium Aorta IVC CONCLUSIONS Limited echo with subotimal exam and images Mildly increased left ventricular cavity size. Severely decreased left ventricular systolic function. Left ventricular ejection fraction is estimated at 25 -30 %. Global left ventricular hypokinesis. Severe aortic valve calcification. It is appeared to bw moderately to severely stenotic. There is no pericardial effusion. Maria Luisa Garrison MD (Electronically Signed) Final Date: 28 March 2025 12:42 S
--- NOTE | 2025-03-28 11:13 | P.CONIM_ITS ---
<Statement entered by Buster Ndiaye M.D - 04/01/25 13:28> Patient was evaluated and cared for in conjunction with an advanced practice practitioner.? I personally examined the patient and reviewed the chart and all pertinent data including imaging, telemetry, and laboratory results.? I discussed the patient in detail with the advanced practice practitioner.? Please see? their note for complete consult note, testing results and agreed upon plan of care for the patient. GENERAL: Patient is alert, awake and oriented x3. HEART: Regular S1 and S2 LUNGS: Diminished air entry bilaterally CENTRAL NERVOUS SYSTEM: Grossly nonfocal. EXTREMITIES: Lower extremities without edema bilaterally. Providers/Reason For Consult 2 Consulting Physician/Specialty*: Dr Ndiaye, cardiology Reason for Consult*: elevated troponin, systolic CHF decompensation Requesting Physician: Dr. Salazar Attending Physician: Dr. العلي Primary Care Provider: Jacqueline Mackey MD History of Present Illness History of Present Illness Emir Mcmullen is a 69 year old male with past medical history of CAD status post CABG x 3 at [facility] in [place], then subsequent stents at [facility] in [place] and/or [facility]. 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 He was previously on a different medication for CML, developed pleural effusion requiring 3 separate thoracentesis procedures, last occurring about 6 years ago. He notes mesothelioma like cells in the pleural fluid. After the medication was changed to bosutinib he has not had any recurrence of pleural effusion. At that time his LVEF was 52%. He was seen in the cardiology clinic by Dr. Garrison in November, echocardiogram performed 02/01/2025 revealed LVEF 35%, moderate aortic stenosis (mean gradient 13 mmHg, OXANA 1.1 cm?). Stress test was recommended 2 weeks ago but has not been performed yet. He began to notice shortness of breath 2 to 3 days ago, then noticed swelling in his feet which he had never seen before, and shortness of breath worsened when he was getting in his truck this morning. He decided to come to the emergency room. Troponin series: 2119-> 1880. BNP 2406. Pulmonary embolism has been ruled out with CTA. CTA revealed moderate right and small left pleural effusions, loculated pleural fluid right lower lobe, groundglass attenuation throughout both lungs likely due to pulmonary edema. There is reflux into hepatic veins. EKG showed sinus bradycardia heart rate 53-56 bpm, IVCD. No ischemic ST or T wave changes. Review of Systems 2 Const: Denies: fever(s), chills, fatigue or diaphoresis Eyes: Denies: change in vision ENMT: Denies: epistaxis Card: Reports: edema, swelling of feet/ankles and dyspnea on exertion; Denies: chest pain, palpitations, irregular heart rhythm, syncope, pre-syncope, orthopnea or leg pain with exertion Resp: Reports: dyspnea; Denies: productive cough or wheezing GI: Denies: nausea, vomiting, hematemesis, hematochezia or melena : Denies: hematuria Levon/Lymph: Denies: easy bruising or easy bleeding Medications/Allergies Home Medications ?Medication ?Instructions ?Recorded ?Confirmed ?Last Taken ?Type levothyroxine 112 mcg capsule 112 mcg PO DAILY 4 03/28/25 03/27/25 History lisinopril 10 mg tablet 10 mg PO DAILY 07/03/2402/2803/27/25 History oxycodone 10 mg tablet 10 - 20 mg PO .Q4-6H PRN Ricky n 07/03/24 03/28/25 03/25/25 History ticagrelor 90 mg tablet (Brilinta) 90 mg PO BID 03/28/25 03/27/25 History bosutinib 100 mg capsule (Bosulif) 400 mg PO DAILY 03/28/25 03/27/25 History cholecalciferol (vitamin D3) 50 100 mcg PO DAILY 07/1703/28/25 03/27/25 History mcg (2,000 unit) capsule vitamin A acetate 3,000 mcg 3,000 mcg PO DAILY 4 03/28/25 03/27/25 History (10,000 unit) sublingual tablet riboflavin (vitamin B2) 50 mg 50 mg PO DAILY 09/04/24 03/28/25 03/27/25 History tablet furosemide 20 mg tablet 20 mg PO DAILY #90 tabs 11/2803/28/25 03/27/25 Rx potassium chloride 10 mEq 10 meq PO DAILY #90 caps 03/28/25 03/27/25 Rx capsule,extended release vitamin E (dl, acetate) 45 mg (100 45 mg PO DAILY 11/2803/28/25 03/27/25 History unit) capsule atorvastatin 40 mg tablet 40 mg PO QPM 03/25/2503/27/25 History metoprolol tartrate 25 mg tablet 25 mg PO BID 03/25/25 03/28/25 03/27/25 History folic acid 400 mcg tablet 0.4 mg PO DAILY 03/28/2503/27/25 History triamcinolone acetonide 0.1 % 1 applic topical BID PRN Skin 03/28/25 03/28/25 Unknown History topical ointment Irritation Allergies Allergy/AdvReac Type Severity Reaction Status Date / Time Penicillins Allergy ALGY-Rash Verified 01/01/25 13:47 Current Medications Generic Name Dose Route Start Last Admin Trade Name Freq PRN Reason Stop Dose Admin Heparin Sodium/Sodium Chloride 25,000 unit in 500 mls @ 0 mls/hr 03/28/25 08:15 03/28/25 08:28 Heparin Drip IV 13.78 unit/kg/hr CONT HELEN 32 mls/hr Protocol Administration Per Protocol PFSH Acute 2 PFSH: Medical History Arteriosclerotic heart disease (ASHD) Surgical History History of open heart surgery 4 stent placement -2008 Hx of appendectomy Hx of inguinal hernia repair x2 Hx of knee surgery bilat Family History Daughter Colon polyps Sister Cancer bone cancer Social History Smoking and tobacco/nicotine status: never used tobacco/nicotine Vitals/I&O/Wt Last Vital Signs Temp 97.8 F 03/28/25 07:10 Pulse 50 L 03/28/25 10:33 Resp 19 H 03/28/25 10:33 BP 91/64 03/28/25 10:33 Pulse Ox 92 03/28/25 10:33 O2 Del Method Room Air 03/28/25 10:33 Weight last 48 hrs Weight 256 lb Physical Exam 2 Const: COMMON NORMALS: no acute distress and patient oriented x3 GENERAL APPEARANCE: cooperative and comfortable ORIENTATION/CONSCIOUSNESS: Yes awake, Yes oriented to person, Yes oriented to place and Yes oriented to time Chest: COMMONS NORMALS: normal inspection of the chest and normal palpation of entire chest wall CHEST: Yes Symmetrical chest wall rise Resp: COMMON NORMALS: normal respiratory effort, No retractions, No use of accessory muscles and clear to auscultation bilaterally (Left upper and lower) EFFORT & INSPECTION: Yes symmetric chest movement AUSCULTATION: clear to auscultation bilaterally (Left upper and lower) and diminished lung sounds on the right Cardio: COMMON NORMALS: regular rate, regular rhythm, S1 normal heart sound present, S2 normal heart sound present, No gallops present (Cardio), No clicks present (Cardio) and No rub (Cardio) RATE: regular rate RHYTHM: regular rhythm HEART SOUNDS: S1 normal heart sound present, S2 normal heart sound present and Murmur heart sound present systolic Intensity: II/ PERIPHERAL PULSES: radial pulses present Extremity: GENERAL: Yes edema (2+ pitting edema bilaterally below the knee) Neuro: COMMON NORMALS: patient oriented x3 and moves all extremities S ENSORIUM/ORIENTATION: Yes oriented to person, Yes oriented to place and Yes oriented to time Data 03/28/25 07:21 03/28/25 07:21 A&P Assessment and plan 1. Atherosclerotic heart disease: 2. Systolic and diastolic CHF, acute on chronic: 3. Aortic stenosis, moderate: 4. History of open heart surgery: 5. Morbid obesity with BMI of 40.0-44.9, adult: 6. Chronic myeloid leukemia (CML), BCR/ABL-positive: Plan: He appears significantly volume overloaded. Will start Lasix 40 twice daily-last dose was 7 this morning. Creatinine 1.2 (baseline appears around 1.0). Potassium replacement with 20 mEq twice daily. Depending on diuresis may adjust dosing. Plan is for coronary angiogram to evaluate further once he is more euvolemic and can lay down. Continue Brilinta 90 mg twice daily. PDMP PDMP Reviewed: Not Reviewed Coding Level of Care Code Acute Code for [facility] Fwd Diagnoses Atherosclerotic heart disease I25.10 Systolic and diastolic CHF, acute on chronic I50.43 Aortic stenosis, moderate I35.0 History of open heart surgery Z98.890 Morbid obesity with BMI of 40.0-44.9, adult E66.01; Z68.41 Chronic myeloid leukemia (CML), BCR/ABL-positive C92.10
--- NOTE | 2025-03-28 13:24 | PC.NURSE ---
this nurse assumed pt care from SHERIN Concepcion at 1300.
--- NOTE | 2025-03-28 13:28 | ECG_ITS ---
[facility] Test Date: 2025-03-28 Pat Name: Emir Mcmullen Department: Room: Gender: Male Transition Program Manager: : 1955 Requested By: Macro Lama Order Number: [id number] Reading MD: JERONIMO STROUD Measurements Intervals [place] Rate: 56 P: -1 [place]: 205 QRS: 23 QRSD: 142 T: 130 QT: 465 QTc: 452 Interpretive Statements SINUS BRADYCARDIA INDETERMINATE AXIS INTRAVENTRICULAR CONDUCTION DELAY [130+ ms QRS DURATION] Compared to ECG 03/28/2025 09:21:35 First degree AV block no longer present Electronically Signed On 03-28-2025 22:21:49 CDT by JERONIMO STROUD [email or web address]
[2025-03-28 13:31] LABS: Troponin 5 6HR 1814 ng/L (0-15); Troponin 5 6HR Delta -305 ng/L (0-12)
[2025-03-28 16:31] LABS: Partial Thromboplastin Time 170.0 SECONDS (23.9-36.7)
--- NOTE | 2025-03-28 17:01 | PC.NURSE ---
Patient is refusing to have cabrera catheter placed. Instructed on need for measurement. He swore he would use his urinal. He stated, Last time they traumatized me. Informed Dr العلي
[2025-03-29] VITALS (8 sets, daily range): BP systolic 109–141; BP diastolic 66–93; PULSE 56–82; RESP 15–21; TEMP 36.5–36.7; O2SAT 94–97
[2025-03-29 01:34] LABS: Hematocrit 35.4 % (37-53); Hemoglobin 11.60 g/dL (11.27-16.99); Mean Corpuscular HGB Conc 32.8 g/dL (30-55); Mean Corpuscular Hemoglobin 28.7 pg (27-33); Mean Corpuscular Volume 87.6 fl (82-101); Nucleated Red Blood Cells % 0 %; Platelet Count 266 10^3/cmm (157-399); Red Blood Count 4.04 10^6/uL (3.85-5.65); White Blood Count 10.64 10^3/uL (3.29-11.43)
[2025-03-29 01:55] LABS: Partial Thromboplastin Time 84.2 SECONDS (23.9-36.7)
[2025-03-29 01:57] LABS: Alanine Aminotransferase 35 U/L (0-41); Albumin Level 3.6 g/dL (3.5-5.2); Alkaline Phosphatase 90 U/L (40-130); Anion Gap 19.8 (5-19); Aspartate Amino Transferase 31 U/L (0-40); Blood Urea Nitrogen 32 mg/dL (8-23); Calcium 9.0 mg/dL (8.5-10.5); Carbon Dioxide 22 mmol/L (22-29); Chloride 100 mmol/L (98-107); Creatinine Clr Calc Pharmacy 59.0175; Globulin 3.1 g/dL (1.3-4.6); Glucose 109 mg/dL (65-115); Magnesium 2.4 mg/dL (1.7-2.3); Osmolality Calculated 293 mOsm/kg (285-295); Potassium 3.8 mmol/L (3.5-5.1); Sodium 138 mmol/L (136-145); Total Protein 6.7 g/dL (6.6-8.7)
--- OUTSIDE RECORDS SUMMARY | 2025-03-29 03:19 | XMS_ITS | Patient Health Record ---
Author Organization [facility] Address [address], [place] [id number] Care Team Providers Care Utility Gelatin Maker Name Role Phone [facility] Primary Care Provider Williams Stockton MD Unavailable [phone] [place], [place] Unavailable Unavailable Carie Squires Unavailable [phone] Allergies Allergen (clinical drug ingredient) Drug/Non Drug [...] Lucero Daniel ff Referring Provider Last Name [place] Referred Organization [facility] Referred Provider Williams Camacho Referred Address [address], [id number], General Notes Heaven Jordan 12:35:18 PM >Need SSN. Ready to schedule., Heaven Jordan 06/26/2024 01:15:20 PM >Left message to schedule. Referral Priority Routine Medications Medication SIG (Take, Route, Frequency, Duration) Notes Start Date End Date Status lisinopril 10 mg 1 tab(s) orally once a day Active oxyCODONE 10 mg 1-2 tabs orally Q4-6H prn pain (max 5/day; hold within 4H of planned sleep); Duration: 28 days ICD-10: G89.29 01/10/2025 Active oxyCODONE 10 mg 1-2 tabs orally Q4-6H prn pain (max 5/day; hold within 4H of planned sleep); Duration: 28 days Do not fill prior to 02/07/25. ICD-10: G89.29 01/07/2025 Active oxyCODONE 10 mg 1-2 tabs orally Q4-6H prn pain (max 5/day; hold within 4H of planned sleep); Duration: 28 days Do not fill prior to [...] Notes Problem High risk drug monitoring status (584286414) [facility] (current) use of opiate analgesic (Z79.891) Active confirmed Problem Sleep disorder (64127530) Other sleep disorders (G47.8) Active confirmed Problem Chronic pain (45431744) Other chronic pain (G89.29) Active confirmed Problem Osteoarthritis of hip (805825277) Osteoarthritis of hip, unspecified (M16.9) Active confirmed Problem Pain of left hip joint (finding) (839026862918933) Pain in left hip (M25.552) Active confirmed Problem Long-term current use of drug therapy (986637748) Other mcc (current) drug therapy (Z79.899) Active confirmed Vital Signs Temperature 97.0 degrees Fahrenheit 01/10/2025 Blood pressure diastolic 48 mm Hg 01/10/2025 Oximetry 94 % 01/10/2025 Height 67 in 01/10/2025 Blood pressure systolic 80 mm Hg 01/10/2025 Weight 255 lbs 01/10/2025 BMI 39.93 kg/m2 01/10/2025 Encounters Encounter Location Date Provider Diagnosis [facility] [address] [place], [place] [id number] 09/17/2024 Carie Palacios Pain in left hip M25.552 ; Osteoarthritis of hip, unspecified M16.9 ; Other sleep disorders G47.8 and Other manager terminal (current) drug therapy Z79.899 [facility] [place] [address] [place], [place] [id number] 10/04/2024 Williams Momobryanna Pain in left hip M25.552 ; Osteoarthritis of hip, unspecified M16.9 ; Other sleep disorders G47.8 and Other manager terminal (current) drug therapy Z79.899 [facility] [place] [address] [place], [place] [id number] 11/15/2024 Williams Camacho Pain in left hip M25.552 ; Other chronic pain G89.29 ; Osteoarthritis of hip, unspecified M16.9 ; Other sleep disorders G47.8 and marine oil terminal superintendent (current) use of opiate analgesic Z79.891 [facility] [address] [place], [place] [id number] 01/10/2025 Williams Tompson Pain in left hip M25.552 ; Other chronic pain G89.29 and Other sleep disorders G47.8 [facility] [address], [place] [phone] 12/13/2024 Williams Camacho Assessments Encounter Date Diagnosis [...] for left LEAH per Dr. Ballard, his [facility] orthopedist. 09/17/2024 Osteoarthritis of hip, unspecified (ICD-10 - M16.9) Severe osteoarthritis of the left hip as noted on left hip x-ray report from 08/02/24. 09/17/2024 Pain in left hip (ICD-10 - M25.552) Chronic left hip pain. Patient reports that a left LEAH work up was in progress while his was living in [place]. Pre-operative plan included 20 pound weight loss, updated dental care, and cardiac clearance. Upon moving to [place], that same plan has been instituted. Plan to obtain left hip MRI report from [facility] in [place], [place]. 10/04/2024 Osteoarthritis of hip, unspecified (ICD-10 [...] for left LEAH per Dr. Ballard, his [facility] orthopedist. 01/10/2025 Other sleep disorders (ICD-10 - [...] be at patient's increased risk. 09/17/2024 Other mcc (current) drug therapy (ICD-10 - Z79.899) Patient [...] / or illicit controlled substance(s). 10/04/2024 Other manager terminal (current) drug therapy (ICD-10 - Z79.899) Patient [...] patient in the low risk category. 11/15/2024 [facility] (current) use of opiate analgesic (ICD-10 - [...] along with tapering instructions. Due to the [place] Pharmacy's inability to store more than 1 month of opioid prescriptions at a time, remaining 2 prescriptions printed and given to patient to fill in 28 and 56 days. 10/04/2024 Other 09/17/2024 Other Continue above medication as currently prescribed by [place] PCP. Case reviewed and treatment plan approved by Dr. Camacho. 11/15/2024 Other Due to the [place] Pharmacy's inability to store more than 1 [...] Date [employer] [address] [place] [id number] Emir Mcmullen Self - patient is the insured Medical (General) History Medical History History ICD Code Chronic pain Hip pain, left Severe osteoarthritis left h ip as noted upon review of prior radiology report Sensorineural hearing loss Tinnitus, bilateral Chronic myeloid leukemia (2008 - on-madan g treatment has been reported) Congestive heart failure Mesothelioma Sleep disorder with poor sle ep, snoring and some hypersomnia noted upon sleep apnea screening (patient has declined offer for a sleep study and possible treatment) Obesity, moderate Surgical History Surgery Date(Month/Year) Appendectomy, 1997 Bilateral total knee replacements, [place], 2 009 Open heart surgery with 4 st ents and 3 grafts, performed in [place], [place], 2008 Thoracentesis x 4, performed at [facility], 2021 Replacement of cardiac stents, performed in [place], [place], 02/2023 Colonoscopy, performed at [facility], 2023
--- OUTSIDE RECORDS SUMMARY | 2025-03-29 03:19 | XMS_ITS | Clinical Summary ---
Author Organization [facility] Address [address] [place] [address] Phone Care Team Providers Care Director Data Name Role Phone Unavailable Primary Care Provider [...] Comments Blood Pressure 120/73 07/22/2024 2:45 PM CHICKEN FANCIER Pulse 63 07/22/2024 2:45 PM CHICKEN FANCIER Temperature 36.3 C (97.3 F) 07/22/2024 2:45 PM CHICKEN FANCIER Respiratory Rate 17 07/22/2024 2:45 PM CHICKEN FANCIER Oxygen Saturation 93% 07/22/2024 2:45 PM CHICKEN FANCIER Inhaled Oxygen Concentration - - Weight 120.2 kg (265 lb) 07/22/2024 12:20 PM CHICKEN FANCIER Height 170.2 cm (5' 7 ) 07/22/2024 12:20 PM CHICKEN FANCIER Body Mass Index 41.5 07/22/2024 12:20 PM CHICKEN FANCIER Plan of Treatment Health Maintenance Due Date [...] or Tdap) 12/11/2031 12/10/2021, 09/07/2011, 08/29/2000 Insurance [facility]
[2025-03-29] MEDS: heparin drip 25,000 UNIT/500 ML PREMIX 23 UNIT IV (04:17)
[2025-03-29] MEDS: FUROsemide 10 mg/mL SDV 4mL 20 MG IVP (04:19)
[2025-03-29 08:56] LABS: Partial Thromboplastin Time 72.7 SECONDS (23.9-36.7)
[2025-03-29] MEDS: FUROsemide 10 mg/mL SDV 4mL 40 MG IVP (08:58)
--- NOTE | 2025-03-29 09:15 | P.PN_ITS ---
<Statement entered by Buster Ndiaye M.D - 04/02/25 08:08> Patient was cared for in conjunction with an advanced practice practitioner.? I reviewed the chart and all pertinent data including imaging, telemetry, and laboratory results.? I discussed the patient in detail with the advanced practice practitioner.? Please see?their note for progress note, testing results and agreed upon plan of care for the patient. Subjective 2 Subjective: He has diuresed well overnight, is -1870 so far this morning. Lower extremity edema improved, shortness of breath significantly improved compared to yesterday. He is able to lay virtually flat this morning. Creatinine 1.4, increased from 1.2. Will hold diuretics and plan for coronary angiogram tomorrow morning. N.p.o. after midnight tonight. Vitals/I&O/Wt Last Vital Signs Temp 97.9 F 03/29/25 11:38 Pulse 82 03/29/25 11:38 Resp 19 H 03/29/25 11:38 BP 131/93 03/29/25 11:38 Pulse Ox 97 03/29/25 11:38 O2 Del Method Room Air 03/29/25 11:38 03/28/25 03/29/25 03/29/25 22:59 06:59 14:59 Intake Total 506.667 / 980.000 473.333 / 980.000 120 / 120 Output Total 1050 / 2450 1400 / 2450 1600 / 1600 Balance -543.333 / -1470.000 -926.667 / -1470.000 -1480 / -1480 Weight last 48 hrs Weight 253 lb 3 oz Weight 256 lb 9.6 oz Weight 256 lb Physical Exam 2 Const: COMMON NORMALS: no acute distress and patient oriented x3 GENERAL APPEARANCE: cooperative and comfortable ORIENTATION/CONSCIOUSNESS: Yes awake, Yes oriented to person, Yes oriented to place and Yes oriented to time Chest: COMMONS NORMALS: normal inspection of the chest and normal palpation of entire chest wall CHEST: Yes Symmetrical chest wall rise Resp: COMMON NORMALS: normal respiratory effort, No retractions, No use of accessory muscles and clear to auscultation bilaterally EFFORT & INSPECTION: Yes symmetric chest movement AUSCULTATION: clear to auscultation bilaterally and crackles (Slight) Laterality: right and posterior Cardio: COMMON NORMALS: regular rate, regular rhythm, S1 normal heart sound present, S2 normal heart sound present, No gallops present (Cardio), No clicks present (Cardio) and No rub (Cardio) RATE: regular rate RHYTHM: regular rhythm HEART SOUNDS: S1 normal heart sound present, S2 normal heart sound present and Murmur heart sound present systolic Intensity: II/ PERIPHERAL PULSES: radial pulses present Extremity: GENERAL: Yes edema (1+ pitting edema bilateral lower extremities below the knee) Neuro: COMMON NORMALS: patient oriented x3 and moves all extremities S ENSORIUM/ORIENTATION: Yes oriented to person, Yes oriented to place and Yes oriented to time Data 03/29/25 00:55 03/29/25 00:55 A&P Assessment and plan 1. Systolic and diastolic CHF, acute on chronic: 2. Aortic stenosis, moderate: 3. History of open heart surgery: 4. Congestive heart failure: 5. Morbid obesity with BMI of 40.0-44.9, adult: 6. Chronic leukemia: Plan: He is diuresing well, we will plan for coronary angiogram first thing in the morning 0700. N.p.o. after midnight tonight. Hold diuretics. PDMP PDMP Reviewed: Not Reviewed Attestations 2 Medical Necessity Statement*: Ischemic workup, elevated troponin Coding Level of Care Code Acute Code for [facility] Diagnoses Systolic and diastolic CHF, acute on chronic I50.43 Aortic stenosis, moderate I35.0 History of open heart surgery Z98.890 Congestive heart failure I50.9 Morbid obesity with BMI of 40.0-44.9, adult E66.01; Z68.41 Chronic leukemia C95.10
--- NOTE | 2025-03-29 09:33 | PC.SOCIAL ---
IMM Update pg 2 of IMM Updated and provided w/ patient. Copy provided and copy dated, initialed and placed in chart.
[2025-03-29 14:25] LABS: Partial Thromboplastin Time 60.6 SECONDS (23.9-36.7)
--- NOTE | 2025-03-29 20:12 | P.PN_ITS ---
Subjective 2 Subjective: Subjectively he is feeling better today, he is able to recline better in bed. No chest pain or pressure. Vitals/I&O/Wt Last Vital Signs Temp 97.9 F 03/29/25 18:57 Pulse 71 03/29/25 18:57 Resp 21 H 03/29/25 18:57 BP 128/68 03/29/25 18:57 Pulse Ox 94 03/29/25 18:57 O2 Del Method Room Air 03/29/25 18:57 03/29/25 03/29/25 03/29/25 06:59 14:59 22:59 Intake Total 473.333 / 980.000 120 / 120 240 / 360 Output Total 1400 / 2450 1600 / 1600 400 / 2000 Balance -926.667 / -1470.000 -1480 / -1480 -160 / -1640 Weight last 48 hrs Weight 114.844 kg Weight 116.392 kg Weight 116.12 kg Physical Exam 2 Narrative: Sitting up in wheelchair. Const: COMMON NORMALS: patient oriented x3 and alert GENERAL APPEARANCE: c ooperative ORIENTATION/CONSCIOUSNESS: Yes awake HENMT: COMMON NORMALS: oropharynx normal Neck/C-Spine: COMMON NORMALS: no JVD Resp: COMMON NORMALS: normal respiratory effort and clear to auscultation bilaterally AUSCULTATION: clear to auscultation bilaterally and diminished lung sounds bilateral in the lower lung [place]ina Cardio: COMMON NORMALS: no JVD, regular rhythm, S1 normal heart sound present, S2 normal heart sound present and No murmurs present (Cardio) RHYTHM: regular rhythm HEART SOUNDS: S1 normal heart sound present and S2 normal heart sound present GI: COMMON NORMALS: Normal to inspection, nondistended, normoactive bowel sounds present, Soft to palpation and non-tender PALPATION: Yes Soft to palpation Extremity: COMMON NORMALS: no joint enlargement GENERAL: Yes edema (1+) Neuro: COMMON NORMALS: patient oriented x3 and moves all extremities S ENSORIUM/ORIENTATION: Yes alert Skin: COMMON NORMALS: no rashes or lesions noted GENERAL SKIN EXAM: no rashes or lesions noted Data 03/29/25 00:55 03/29/25 00:55 A&P Assessment and plan 1. Systolic and diastolic CHF, acute on chronic: Reviewed intake and output, noted and negative balance. Per discussion with him he does drink quite a bit at home as he was worried about getting dehydrated and his renal function. He states he drinks close to about a gallon in a day. Discussed with him to limit to 1-1.5 L total liquid intake in a day. Continue IV diuresis with Lasix. So far responding well. Reviewed WBC, chemistry, magnesium, reassess electrolytes with risk of deficiency, reassess renal function risk of ACACIA. Reviewed echocardiogram, noted ejection fraction down to 25-30% with global ventricular hypokinesis, severe aortic calcification appears to be low moderately severe aortic stenosis. Reviewed cardiology note, pending coronary angiogram Plans for tomorrow. Discussed with nursing, case supervisor. - Continue intravenous furosemide; cautiously diurese because of low blood pressure. - Monitor kidney function and electrolytes during diuresis with risk of deficiency, arrhythmia. Monitor on telemetry. 2. Atherosclerotic heart disease: With possible NSTEMI with troponin elevation, acute CHF. Further assessment with coronary angiography planned for tomorrow. Troponin elevated with noted gradual decline. Reviewed echocardiogram. Complete troponin EKG series. Monitor on telemetry with risk of arrhythmia. Treat CHF and optimize cardiac status. -Continue aspirin, Brilinta. Cut down beta-jake dose. He has stopped statin stating it has been giving him muscle and joint pains. Plan: Moderate aortic stenosis : Mild possibly moderate to severe aortic stenosis on echocardiogram. Given he has been symptomatic and with congestive heart failure, follow-up with cardiology with regards to stenosis and consideration of timing of referral for repair. Known valve disease contributing to dyspnea; recent echocardiogram in January 2025 showed moderate stenosis. Monitor for risk of hypotension. - Optimize volume status first; cardiology to reassess valve once euvolemic. - No immediate surgical intervention planned while inpatient. Pleural effusion : CT chest shows moderate right and small left pleural effusions and a focal pleural-based abnormality possibly trapped fluid versus neoplasm. - Diuresis as above. - Consider repeat imaging Incidentally noted nodule versus fluid loculation along the right lower lobe. He does report some history of pleural biopsy with some mesothelial cells noted in the past although states this was on the left side. - Refer to pulmonology for evaluation and follow-up imaging and consideration of biopsy. Bradycardia and hypotension on beta-jake and EDWARD inhibitor : Resting heart rates in 40s; BP 86/58 mmHg while on metoprolol 25 mg BID and lisinopril. - Reduce metoprolol to half-tablet dosing (12.5 mg) twice daily while inpatient; monitor heart rate. - Hold or reduce lisinopril temporarily due to hypotension until blood pressure improves. - Continue blood pressure checks. Chronic myeloid leukemia (CML) : Stable on bosutinib 400 mg daily; leukopenia noted today (WBC 0.62 K/?L) compared with previous leukocytosis. Continue follow-up with hematology. PDMP PDMP Reviewed: Not Reviewed Attestations 2 Medical Necessity Statement*: Continue admission for assessment and management of acute CHF, further assessment of coronary disease with possible NSTEMI and High MDM includes amount and/or complexity of data reviewed/ordered [ resulted lab(s)/test(s), ordered lab(s)/test(s) and other healthcare professional discussion] and described risk of complication, morbidity or mortality of management as documented Diagnoses Systolic and diastolic CHF, acute on chronic I50.43 Atherosclerotic heart disease I25.10
[2025-03-29 20:26] LABS: Partial Thromboplastin Time 58.1 SECONDS (23.9-36.7)
[2025-03-30] VITALS (10 sets, daily range): BP systolic 103–136; BP diastolic 61–79; PULSE 59–80; RESP 18–26; TEMP 36.4–36.9; O2SAT 88–97
[2025-03-30] MEDS: heparin drip 25,000 UNIT/500 ML PREMIX 23 UNIT IV (02:02)
[2025-03-30 03:06] LABS: Hematocrit 37.1 % (37-53); Hemoglobin 12.10 g/dL (11.27-16.99); Mean Corpuscular HGB Conc 32.6 g/dL (30-55); Mean Corpuscular Hemoglobin 28.5 pg (27-33); Mean Corpuscular Volume 87.3 fl (82-101); Nucleated Red Blood Cells % 0 %; Platelet Count 306 10^3/cmm (157-399); Red Blood Count 4.25 10^6/uL (3.85-5.65); White Blood Count 10.39 10^3/uL (3.29-11.43)
[2025-03-30 03:26] LABS: Alanine Aminotransferase 43 U/L (0-41); Albumin Level 3.9 g/dL (3.5-5.2); Alkaline Phosphatase 99 U/L (40-130); Anion Gap 18.3 (5-19); Aspartate Amino Transferase 28 U/L (0-40); Blood Urea Nitrogen 23 mg/dL (8-23); Calcium 9.5 mg/dL (8.5-10.5); Carbon Dioxide 23 mmol/L (22-29); Chloride 102 mmol/L (98-107); Creatinine Clr Calc Pharmacy 68.3592; Globulin 3.2 g/dL (1.3-4.6); Glucose 101 mg/dL (65-115); Osmolality Calculated 292 mOsm/kg (285-295); Partial Thromboplastin Time 66.0 SECONDS (23.9-36.7); Potassium 4.3 mmol/L (3.5-5.1); Sodium 139 mmol/L (136-145); Total Protein 7.1 g/dL (6.6-8.7)
--- NOTE | 2025-03-30 07:14 | W.PM.OPSUD ---
Surgery/Procedure H&P Update DATE OF PROCEDURE: March 30, 2025 DATE H&P PERFORMED: 03/28/25 H&P UPDATE INFORMATION: I have reviewed H&P completed within last 30 days, I have examined patient prior to procedure and No changes to prior documentation PREOP DIAGNOSIS: NSTEMI/ Congestive heart failure/ aortic stenosis PRIMARY INDICATION FOR PROCEDURE: NSTEMI/ Congestive heart failure/ aortic stenosis PLANNED PROCEDURE: Operation Date: 03/30/25 06:00 Proposed Procedures p Cardiac Catheterization(Left) - Buster Ndiaye M.D Possible percutaneous coronary intervention PATIENT REASSESSED PRIOR TO SEDATION, WITH NO CHANGE NOTED: Yes PHYSICAL EXAM: alert, oriented x 3, clear to auscultation bilaterally and regular rate & rhythm AIRWAY EVAL/ANESTHESIA PLAN: normal airway, ASA III, Local Anesthesia, Risks, benefits & alternatives of sedation and/or procedure discussed and Patient agrees to continue as planned ADDITIONAL INFORMATION: Moderate sedation
[2025-03-30 07:42] LABS: Alveolar-Arterial Oxygen Gradi 4.7 mmHg (5-10); Arterial Blood Gas Hematocrit 38.3 % (42-52); Blood Gas Operator Identificat WALCI; Blood Gas Sample Type Arterial; Carboxyhemoglobin 1.3 %THgb (0.4-20.1); Methemoglobin 0.9 % (0.4-1.5)
[2025-03-30 07:44] LABS: Alveolar-Arterial Oxygen Gradi 8.1 mmHg (5-10); Arterial Blood Gas Hematocrit 36.6 % (42-52); Blood Gas Operator Identificat WALCI; Blood Gas Sample Type Arterial; Carboxyhemoglobin 1.3 %THgb (0.4-20.1); Methemoglobin 1.0 % (0.4-1.5)
--- NOTE | 2025-03-30 08:25 | P.PCN_ITS ---
Procedure Note: Date of procedure: 03/30/25 Pre-procedure diagnosis: NSTEMI/ Congestive heart failure Post-procedure diagnosis: other (Total occlusion of distal left main artery) Procedure: Distal left main artery is totally occluded with no flow in left circumflex artery. MARIE to LAD is patent. RCA is patent Moderate aortic stenosis Severely elevated right and left sided cardiac pressures Patient needs aggressive diuresis and optimized medical therapy for congestive heart failure Will recommend lifevest placement Performing Provider: Buster Ndiaye Estimated blood loss (mL): 10 Complications: None Condition: stable Disposition: floor Coding Level of Care Code Acute Code for [facility]
--- NOTE | 2025-03-30 08:35 | PC.NURSE ---
patient arrived back from director of cardiac cath lab at 0828. Bedside observation done with Telly Hughes RN. No hematoma noted, r groin minx closure. NO hematoma noted on arrival.
--- NOTE | 2025-03-30 09:40 | P.PN_ITS ---
Subjective 2 Subjective: 69-year-old male underwent jed ective coronary angiogram this morning without further intervention. His left circumflex is receiving no flow his distal left main is occluded and his MARIE to LAD is patent and RCA is patent. He has low EF 25 to 30% and recommended for LifeVest.. He is to continue on diuresis currently limited by hypotension I spoke with him regarding sleep apnea and he thinks he does have sleep apnea. He has not been treated for sleep apnea. He does have morbid obesity and has been working at weight loss making some changes but still eating butter and eggs. He states he is not a diabetic and blood sugars have been around 100 Patient states he had mesothelial cells on pleural effusion tapped 5 years ago. He states there is some thickening that physicians are concerned about. He states he had thoracentesis 4 times the first 3 times removed 2 L and the last one 4 ounces about 5 years ago Patient admits to snoring and sometimes he wakes up with his throat sore Vitals/I&O/Wt Last Vital Signs Temp 98.3 F 03/30/25 03:20 Pulse 70 03/30/25 09:32 Resp 24 H 03/30/25 09:32 BP 103/61 03/30/25 09:32 Pulse Ox 92 03/30/25 09:29 O2 Del Method Room Air 03/30/25 09:32 03/29/25 03/30/25 03/30/25 22:59 06:59 14:59 Intake Total 612.6 / 732.6 168.417 / 901.017 Output Total 1000 / 2600 300 / 300 Balance -387.4 / -1867.4 168.417 / -1698.983 -300 / -300 Weight last 48 hrs Weight 115.349 kg Weight 114.844 kg Weight 116.392 kg Physical Exam 2 Narrative: General well-developed well-nourished obese male in no acute cardiopulmonary stress Oropharynx chewing tobacco poor dentition Mallampati 2 CV regular rate and rhythm Lungs clear to auscultation bilaterally but diminished in the bases Abdomen positive bowel sounds obese Calves 1+ to 2 bilateral pretibial edema Data 03/30/25 02:32 03/30/25 02:32 Echo: Radiologist's impression: Limited echo with subotimal exam and images Mildly increased left ventricular cavity size. Severely decreased left ventricular systolic function. Left ventricular ejection fraction is estimated at 25 -30 %. Global left ventricular hypokinesis. Severe aortic valve calcification. It is appeared to bw moderately to severely stenotic. There is no pericardial effusion. CTA Chest: Radiologist's impression: IMPRESSION: 1. No evidence for pulmonary embolus. 2. Moderate RIGHT and small LEFT pleural effusions. 3. Loculated pleural fluid/nodular pleural thickening along the RIGHT lower lobe laterally extending along the mediastinum to the lung apex. This may be benign trapped fluid but neoplasm should be excluded. 4. Compressive atelectasis RIGHT lower lobe. 5. Hazy groundglass attenuation throughout both lungs may be infectious or inflammatory versus pulmonary edema 6. Cardiomegaly. 7. Contrast reflux into the hepatic veins can be seen with RIGHT heart dysfunction A&P Assessment and plan 1. Systolic and diastolic CHF, acute on chronic: Reviewed echocardiogram, noted ejection fraction down to 25-30% with global ventricular hypokinesis, severe aortic calcification appears to be low moderately severe aortic stenosis. Reviewed cardiology note, pending coronary angiogram Patient on fluid restriction and LifeVest recommended by Dr. Ndiaye. Angiogram this morning showed left circumflex no flow distal left main total occlusion MARIE to LAD patent. RCA patent moderate aortic stenosis severely elevated left and right side cardiac pressures and recommended aggressive diuresis currently limited by borderline hypotension 2. Atherosclerotic heart disease: Medical management and LifeVest as above. Blood pressure was low at 103/61 -Continue aspirin, Brilinta. Cut down beta-jake dose. He has stopped statin stating it has been giving him muscle and joint pains. Will check lipoprotein a, lipid panel and hs-CRP in the morning 3. Chronic myeloid leukemia (CML), BCR/ABL-positive: Patient remains on bosutinib. White count 10.39 and differential is close to normal 4. Aortic stenosis, moderate: moderate aortic stenosis by angiogram today 5. Obesity (BMI 30-39.9): Patient counseled regarding weight loss diet and he is agreeable Plan: Pleural effusion : CT chest shows moderate right and small left pleural effusions and a focal pleural-based abnormality possibly trapped fluid versus neoplasm. - Diuresis as above. - Consider repeat imaging Incidentally noted nodule versus fluid loculation along the right lower lobe. He does report some history of pleural biopsy with some mesothelial cells noted in the past although states this was on the left side. - Refer to pulmonology for evaluation and follow-up imaging and consideration of biopsy. PDMP PDMP Reviewed: Not Reviewed Attestations 2 Medical Necessity Statement*: Patient remains in hospital for diuresis and likely stop his heparin drip Coding Level of Care Code 31576 Diagnoses Systolic and diastolic CHF, acute on chronic I50.43 Atherosclerotic heart disease I25.10 Chronic myeloid leukemia (CML), BCR/ABL-positive C92.10 Aortic stenosis, moderate I35.0 Obesity (BMI 30-39.9) E66.9 Time Spent (min) 45
--- NOTE | 2025-03-30 13:38 | P.PN_ITS ---
Subjective 2 Subjective: Patient had coronary angiogram performed today. No chest pain. Has occluded left main artery. Patent AMRIE to LAD and [place] RCA. Vitals/I&O/Wt Last Vital Signs Temp 97.8 F 03/30/25 12:00 Pulse 59 L 03/30/25 12:00 Resp 18 03/30/25 12:00 BP 116/63 03/30/25 12:00 Pulse Ox 88 L 03/30/25 12:00 O2 Del Method Room Air 03/30/25 09:32 03/29/25 03/30/25 03/30/25 22:59 06:59 14:59 Intake Total 612.6 / 732.6 168.417 / 901.017 480 / 480 Output Total 1000 / 2600 300 / 300 Balance -387.4 / -1867.4 168.417 / -1698.983 180 / 180 Weight last 48 hrs Weight 254 lb 4.8 oz Weight 253 lb 3 oz Weight 256 lb 9.6 oz Physical Exam 2 Narrative: GENERAL: Patient is alert, awake and oriented x3. [] NECK: No jugular vein distension. [] HEENT: No cyanosis. No icterus. No pallor. [] HEART: Regular S1 and S2. Grade 3/6 systolic murmur LUNGS: Clear to auscultate bilaterally. [] CENTRAL NERVOUS SYSTEM: Grossly nonfocal. [] EXTREMITIES: Lower extremities with 1+ edema bilaterally. Data 03/31/25 03:04 03/31/25 03:04 A&P Assessment and plan 1. Systolic and diastolic CHF, acute on chronic: 2. Aortic stenosis, moderate: 3. History of open heart surgery: 4. Congestive heart failure: 5. Morbid obesity with BMI of 40.0-44.9, adult: 6. Chronic leukemia: Plan: Coronary angiogram demonstrated patent [place] RCA and MARIE to LAD. Distal left main stent is occluded. Medical management for CAD. Continue aspirin and Brilinta. Right and left-sided cardiac pressures are severely elevated. Will recommend aggressive diuresis. Close I&O's and renal function monitoring. Valve study showed moderate aortic stenosis. Medical therapy at this time. Thank you for involving us with care of this patient. We will continue to follow. Please call with questions. PDMP PDMP Reviewed: Not Reviewed Attestations 2 Medical Necessity Statement*: Care expected to cross 2 midnights. Coding Level of Care Code Acute Code for Chg Fwd Diagnoses Systolic and diastolic CHF, acute on chronic I50.43 Aortic stenosis, moderate I35.0 History of open heart surgery Z98.890 Congestive heart failure I50.9 Morbid obesity with BMI of 40.0-44.9, adult E66.01; Z68.41 Chronic leukemia C95.10
[2025-03-31 04:00] VITALS: BP 99/53; PULSE 60; RESP 15; O2SAT 95
[2025-03-31 04:09] LABS: Hematocrit 34.4 % (37-53); Hemoglobin 11.00 g/dL (11.27-16.99); Mean Corpuscular HGB Conc 32.0 g/dL (30-55); Mean Corpuscular Hemoglobin 28.5 pg (27-33); Mean Corpuscular Volume 89.1 fl (82-101); Nucleated Red Blood Cells % 0 %; Platelet Count 297 10^3/cmm (157-399); Red Blood Count 3.86 10^6/uL (3.85-5.65); White Blood Count 11.15 10^3/uL (3.29-11.43)
[2025-03-31 04:31] LABS: CRP High Sensitivity Cardiac 1.840 mg/dL (0.0-0.3); Cholesterol 188 mg/dL (0-200); HDL Cholesterol 38 mg/dL (60-100); Triglycerides 114 mg/dL (0-150)
[2025-03-31 04:34] LABS: Alanine Aminotransferase 37 U/L (0-41); Albumin Level 3.9 g/dL (3.5-5.2); Alkaline Phosphatase 86 U/L (40-130); Anion Gap 16.2 (5-19); Aspartate Amino Transferase 17 U/L (0-40); Blood Urea Nitrogen 19 mg/dL (8-23); Calcium 9.2 mg/dL (8.5-10.5); Carbon Dioxide 22 mmol/L (22-29); Chloride 103 mmol/L (98-107); Creatinine Clr Calc Pharmacy 74.7497; Globulin 2.2 g/dL (1.3-4.6); Glucose 100 mg/dL (65-115); Osmolality Calculated 284 mOsm/kg (285-295); Potassium 5.2 mmol/L (3.5-5.1); Sodium 136 mmol/L (136-145); Total Protein 6.1 g/dL (6.6-8.7)
[2025-03-31 05:40] VITALS: PULSE 56
[2025-03-31 07:27] VITALS: BP 114/69; PULSE 63; RESP 15; TEMP 36.6; O2SAT 96
--- NOTE | 2025-03-31 07:38 | P.PN_ITS ---
Subjective 2 Subjective: Patient is doing well. no chest pain. Vitals/I&O/Wt Last Vital Signs Temp 97.9 F 03/31/25 07:27 Pulse 63 03/31/25 07:27 Resp 15 03/31/25 07:27 BP 114/69 03/31/25 07:27 Pulse Ox 96 03/31/25 07:27 O2 Del Method Room Air 03/31/25 04:00 03/30/25 03/31/25 03/31/25 22:59 06:59 14:59 Intake Total 1565.650 / 2045.650 300 / 2345.650 Output Total 225 / 525 350 / 875 Balance 1340.650 / 1520.650 -50 / 1470.650 Weight last 48 hrs Weight 253 lb 11.2 oz Weight 254 lb 4.8 oz Physical Exam 2 Narrative: GENERAL: Patient is alert, awake and oriented x3. [] NECK: No jugular vein distension. [] HEENT: No cyanosis. No icterus. No pallor. [] HEART: Regular S1 and S2. Grade 3/6 systolic murmur LUNGS: Clear to auscultate bilaterally. [] CENTRAL NERVOUS SYSTEM: Grossly nonfocal. [] EXTREMITIES: Lower extremities with 1+ edema bilaterally. Data 03/31/25 03:04 04/02/25 03:30 A&P Assessment and plan 1. Systolic and diastolic CHF, acute on chronic: 2. Aortic stenosis, moderate: 3. History of open heart surgery: 4. Congestive heart failure: 5. Morbid obesity with BMI of 40.0-44.9, adult: 6. Chronic leukemia: Plan: Medical management for CAD. We will uptitrate diuretic therapy. Cardiac pressures are severely elevated. Close I and Os. Monitor renal function. We will order lifevest Thank you for involving us with care of this patient. We will continue to follow. Please call with questions. PDMP PDMP Reviewed: Not Reviewed Attestations 2 Medical Necessity Statement*: Care expected to cross 2 midnights. Coding Level of Care Code Acute Code for Chg Fwd Diagnoses Systolic and diastolic CHF, acute on chronic I50.43 Aortic stenosis, moderate I35.0 History of open heart surgery Z98.890 Congestive heart failure I50.9 Morbid obesity with BMI of 40.0-44.9, adult E66.01; Z68.41 Chronic leukemia C95.10
[2025-03-31] MEDS: FUROsemide 10 mg/mL SDV 10mL 60 MG IVP ×2 (10:03→20:35)
[2025-03-31 12:00] VITALS: BP 109/67; PULSE 69; RESP 28; TEMP 36.6; O2SAT 96
--- NOTE | 2025-03-31 13:20 | PM.PN ---
Subjective Subjective: Patient had coronary angiogram performed 03/30/2025. No chest pain. Has occluded left main artery. Patent MARIE to LAD and [place] RCA. Patient is able to lay flat now and searches phone. He states he feels much better he has been voiding copious amounts of urine with IV diuresis. Blood pressure has been soft Vitals/I&O/Wt Last Vital Signs Temp 97.9 F 03/31/25 12:00 Pulse 69 03/31/25 12:00 Resp 28 H 03/31/25 12:00 BP 109/67 03/31/25 12:00 Pulse Ox 96 03/31/25 12:00 O2 Del Method Room Air 03/31/25 04:00 03/30/25 03/31/25 03/31/25 22:59 06:59 14:59 Intake Total 1565.650 / 2045.650 300 / 2345.650 480 / 480 Output Total 225 / 525 350 / 875 450 / 450 Balance 1340.650 / 1520.650 -50 / 1470.650 30 / 30 Weight last 48 hrs Weight 115.076 kg Weight 115.349 kg Physical Exam Narrative: General well-developed well-nourished obese male in no acute cardiopulmonary stress Oropharynx chewing tobacco poor dentition Mallampati 2 CV regular rate and rhythm Lungs clear to auscultation bilaterally no crackles Extremities 1+ bilateral pretibial edema Data 03/31/25 03:04 03/31/25 03:04 A&P Assessment and plan 1. Systolic and diastolic CHF, acute on chronic: Reviewed echocardiogram, noted ejection fraction down to 25-30% with global ventricular hypokinesis, severe aortic calcification appears to be low moderately severe aortic stenosis. Reviewed cardiology note, pending coronary angiogram Patient on fluid restriction and LifeVest recommended by Dr. Ndiaye. Angiogram this morning showed left circumflex no flow distal left main total occlusion MARIE to LAD patent. RCA patent moderate aortic stenosis severely elevated left and right side cardiac pressures and recommended aggressive diuresis currently limited by borderline hypotension Continue with diuresis will hold metoprolol for now. Patient is negative recorded 1667 but he states he has filled his urinal twice today already chest x-ray two-view in the morning 2. Atherosclerotic heart disease: Medical management and LifeVest as above. Blood pressure was low at 103/61 -Continue aspirin, Brilinta. Cut down beta-jake dose. He has stopped statin stating it has been giving him muscle and joint pains. Will check lipoprotein a, lipid panel and hs-CRP in the morning 3. Chronic myeloid leukemia, BCR/ABL-positive, in remission: Patient remains on bosutinib. White count 10.39 and differential is close to normal 4. Aortic stenosis, moderate: moderate aortic stenosis by angiogram 03/30/2025 5. Obesity (BMI 30-39.9): Patient counseled regarding weight loss diet and he is agreeable Plan: Repeat chest x-ray two-view in the morning. Patient has had repeated thoracentesis as chronically is 5 years ago he has some pleural thickening of uncertain significance. Follow-up outpatient but this seems less concerning due to the chronicity of the problem PDMP PDMP Reviewed: Not Reviewed Attestations Medical Necessity Statement*: Patient remains in the hospital for IV diuresis anticipate switch to oral regimen tomorrow and then home on Tuesday Coding Level of Care Code 57464 Diagnoses Systolic and diastolic CHF, acute on chronic I50.43 Atherosclerotic heart disease I25.10 Chronic myeloid leukemia, BCR/ABL-positive, in remission C92.11 Leukemia Active/Remission status: in remission Aortic stenosis, moderate I35.0 Obesity (BMI 30-39.9) E66.9 Time Spent (min) 25
--- NOTE | 2025-03-31 13:26 | XRR_ITS ---
PROCEDURE INFORMATION: Exam: XR Chest Exam date and time: 03/31/2025 2:23 PM Age: 69 years old Clinical indication: Pain; Chest pressure; Additional info: Follow-up pleural effusion and congestive heart failure, has done well with diuresis lung exam cleared up TECHNIQUE: Imaging protocol: Radiologic exam of the chest. Views: 2 views. COMPARISON: CT angio chest PE protcl [id number] 03/28/2025 9:07 AM FINDINGS: Lungs: Decrease in the bilateral lower lobe atelectasis. Pleural spaces: Decrease in the right pleural effusion with residual small right pleural effusion. Near-complete resolution of the left pleural effusion. Heart/Mediastinum: The heart is enlarged. Bones/joints: Mild degenerative disease of bilateral acromioclavicular joints. There are mild degenerative changes of the glenohumeral joint. Sternotomy wires and mediastinal surgical clips are present, consistent with previous coronary arterial bypass grafting. The thoracic spine demonstrates mild degenerative changes at multiple levels. XR/XR chest 2V* [id number] IMPRESSION: Decrease in bilateral pleural effusions with lower lobe consolidation/collapse.
[2025-03-31 16:00] VITALS: BP 108/61; PULSE 70; RESP 24; O2SAT 94
[2025-03-31 20:00] VITALS: BP 114/64; PULSE 68; RESP 18; TEMP 36.9
[2025-04-01] VITALS (7 sets, daily range): BP systolic 108–135; BP diastolic 68–84; PULSE 64–83; RESP 12–23; TEMP 36.4–37.7; O2SAT 94–98
[2025-04-01] MEDS: FUROsemide 10 mg/mL SDV 10mL 60 MG IVP (08:41)
--- NOTE | 2025-04-01 09:55 | PC.SOCIAL ---
IMM Update Pg. 2 of IMM updated and reviewed with patient, who verbalized understanding. Copy provided at bedside.
--- NOTE | 2025-04-01 10:42 | P.PN_ITS ---
<Statement entered by Buster Ndiaye M.D - 04/02/25 10:05> Patient was cared for in conjunction with an advanced practice practitioner.? I reviewed the chart and all pertinent data including imaging, telemetry, and laboratory results.? I discussed the patient in detail with the advanced practice practitioner.? Please see?their note for progress note, testing results and agreed upon plan of care for the patient. Subjective 2 Subjective: He is sitting up in the chair this morning, shortness of breath is resolved no chest pain present. Vitals/I&O/Wt Last Vital Signs Temp 97.9 F 04/01/25 07:23 Pulse 68 04/01/25 07:23 Resp 21 H 04/01/25 07:23 BP 125/78 04/01/25 07:23 Pulse Ox 98 04/01/25 07:23 O2 Del Method Room Air 03/31/25 04:00 03/31/25 04/01/25 04/01/25 22:59 06:59 14:59 Intake Total 480 / 480 Output Total 700 / 3850 1600 / 3850 800 / 800 Balance -700 / -3370 -1600 / -3370 -320 / -320 Weight last 48 hrs Weight 243 lb 14.4 oz Weight 243 lb 14.4 oz Weight 253 lb 11.2 oz Physical Exam 2 Const: COMMON NORMALS: no acute distress and patient oriented x3 GENERAL APPEARANCE: cooperative and comfortable ORIENTATION/CONSCIOUSNESS: Yes awake, Yes oriented to person, Yes oriented to place and Yes oriented to time Chest: COMMONS NORMALS: normal inspection of the chest and normal palpation of entire chest wall CHEST: Yes Symmetrical chest wall rise Resp: COMMON NORMALS: normal respiratory effort, No retractions, No use of accessory muscles and clear to auscultation bilaterally EFFORT & INSPECTION: Yes symmetric chest movement AUSCULTATION: clear to auscultation bilaterally Cardio: COMMON NORMALS: regular rate, regular rhythm, S1 normal heart sound present, S2 normal heart sound present, No gallops present (Cardio), No clicks present (Cardio), No murmurs present (Cardio) and No rub (Cardio) RATE: r egular rate RHYTHM: regular rhythm HEART SOUNDS: S1 normal heart sound present and S2 normal heart sound present PERIPHERAL PULSES: radial pulses present Extremity: GENERAL: Yes edema (1+ pitting edema bilateral feet) Neuro: COMMON NORMALS: patient oriented x3 and moves all extremities S ENSORIUM/ORIENTATION: Yes oriented to person, Yes oriented to place and Yes oriented to time Data 03/31/25 03:04 03/31/25 03:04 A&P Assessment and plan 1. Systolic and diastolic CHF, acute on chronic: 2. Aortic stenosis, moderate: 3. History of open heart surgery: 4. Obesity (BMI 30-39.9): 5. Chronic leukemia: Plan: He is looking better overall. I discussed with him use of a LifeVest today since his LVEF is 25 to 30%. He is in agreement to use, will place order today. He would benefit from Entresto, will start low dose 24/26mg BID and watch blood pressures overnight. He appears nearly euvolemic. Will reduce Lasix to 40mg BID from 60mg which will improve blood pressure as well. He is stable to discharge home tomorrow. Follow-up in the cardiology clinic in 7 to 10 days. Continue Brilinta and aspirin, metoprolol currently on hold, he has a longstanding history of bradycardia without taking a beta jake. Would hold spironolactone for now, can add after he has been started on Entresto and laboratory testing completed. Potassium has been placed on hold due to hyperkalemia, 5.2 yesterday. With the combination of Entresto and spironolactone he could potentially be hyperkalemic as well. Priority would be for Entresto to increase LVEF, add on therapy with spironolactone if possible. PDMP PDMP Reviewed: Not Reviewed Attestations 2 Medical Necessity Statement*: possible discharge tomorrow Coding Level of Care Code Acute Code for Chg Fwd Diagnoses Systolic and diastolic CHF, acute on chronic I50.43 Aortic stenosis, moderate I35.0 History of open heart surgery Z98.890 Obesity (BMI 30-39.9) E66.9 Chronic leukemia C95.10
--- NOTE | 2025-04-01 17:52 | P.PN_ITS ---
Subjective 2 Subjective: Chart reviewed. Patient denies any new complaints. Lower extremity edema continues to improve. He saturating well on room air. Net -5.3 L to date. Medications: Reviewed: Yes Vitals/I&O/Wt Last Vital Signs Temp 97.7 F 04/01/25 16:00 Pulse 65 04/01/25 16:00 Resp 15 04/01/25 16:00 BP 118/72 04/01/25 16:00 Pulse Ox 96 04/01/25 16:00 O2 Del Method Room Air 03/31/25 04:00 04/01/25 04/01/25 04/01/25 06:59 14:59 22:59 Intake Total 840 / 840 Output Total 1600 / 3850 1100 / 1100 Balance -1600 / -3370 -260 / -260 Weight last 48 hrs Weight 110.631 kg Weight 110.631 kg Weight 115.076 kg Physical Exam 2 Narrative: General: No acute distress, AO x3 HEENT: PERRLA, pupils bilaterally equal and reactive, pallors not present Chest: Normal vesicular breath sounds, no added sounds, equal good air entry bilaterally CVS: S1-S2 regular, no murmurs, no tachycardia, no gallops, no rubs Abdomen: Soft, nontender, no organomegaly, bowel sounds present Neuro: No focal deficits, no facial deformity, AO x3, power 5/5 in all limbs Data 03/31/25 03:04 03/31/25 03:04 A&P Assessment and plan 1. Systolic and diastolic CHF, acute on chronic: Reviewed echocardiogram, noted ejection fraction down to 25-30% with global ventricular hypokinesis, severe aortic calcification appears to be low moderately severe aortic stenosis. Reviewed cardiology note, pending coronary angiogram Patient on fluid restriction and LifeVest recommended by Dr. Ndiaye. Angiogram this morning showed left circumflex no flow distal left main total occlusion MARIE to LAD patent. RCA patent moderate aortic stenosis severely elevated left and right side cardiac pressures and recommended aggressive diuresis currently limited by borderline hypotension Continue with diuresis will hold metoprolol for now. Patient is negative recorded 1667 but he states he has filled his urinal twice today already chest x-ray two-view in the morning 2. Atherosclerotic heart disease: Medical management and LifeVest as above. Blood pressure was low at 103/61 -Continue aspirin, Brilinta. Cut down beta-jake dose. He has stopped statin stating it has been giving him muscle and joint pains. Will check lipoprotein a, lipid panel and hs-CRP in the morning 3. Chronic myeloid leukemia, BCR/ABL-positive, in remission: Patient remains on bosutinib. White count 10.39 and differential is close to normal 4. Aortic stenosis, moderate: moderate aortic stenosis by angiogram 03/30/2025 5. Obesity (BMI 30-39.9): Patient counseled regarding weight loss diet and he is agreeable Plan: Repeat chest x-ray two-view in the morning. Patient has had repeated thoracentesis as chronically is 5 years ago he has some pleural thickening of uncertain significance. Follow-up outpatient but this seems less concerning due to the chronicity of the problem April 01, 2025 Clinically feels better today. Lower extremity edema is improving. He has diuresed well with net negative at 5 L now. Echocardiogram shows an ejection fraction of 25%. Reduced from 35% previously.. Patient reports a few years ago ejection fraction was at 42%. Continue diuresis with IV Lasix today. Awaiting placement of LifeVest, expected to be arranged tomorrow. Case discussed with patient's oncologist to review if heart failure could potentially be worsened by Bosutinib, at discharge we will hold the medication with plan to follow-up closely with oncology in the next 7 to 10 days to further assess. PDMP PDMP Reviewed: Not Reviewed Attestations 2 Medical Necessity Statement*: Continued need for IV diuresis today. Closely monitor kidney function intake and output. Awaiting LifeVest. Coding Level of Care Code Acute Code for Chg Fwd High MDM includes number and complexity of problems actively addressed during encounter, amount and/or complexity of data reviewed/ordered and described risk of complication, morbidity or mortality of management as documented Diagnoses Systolic and diastolic CHF, acute on chronic I50.43 Atherosclerotic heart disease I25.10 Chronic myeloid leukemia, BCR/ABL-positive, in remission C92.11 Leukemia Active/Remission status: in remission Aortic stenosis, moderate I35.0 Obesity (BMI 30-39.9) E66.9
[2025-04-01] MEDS: FUROsemide 10 mg/mL SDV 10mL 40 MG IVP (19:43)
[2025-04-02 03:21] VITALS: BP 93/56; PULSE 66; RESP 19; TEMP 36.3; O2SAT 90
[2025-04-02 04:18] LABS: Anion Gap 17.7 (5-19); Blood Urea Nitrogen 21 mg/dL (8-23); Calcium 9.4 mg/dL (8.5-10.5); Carbon Dioxide 24 mmol/L (22-29); Chloride 100 mmol/L (98-107); Creatinine Clr Calc Pharmacy 67.0134; Glucose 97 mg/dL (65-115); Osmolality Calculated 289 mOsm/kg (285-295); Potassium 3.7 mmol/L (3.5-5.1); Sodium 138 mmol/L (136-145)
[2025-04-02 07:45] VITALS: BP 125/84; PULSE 88; RESP 20; TEMP 36.3; O2SAT 95
[2025-04-02] MEDS: FUROsemide 10 mg/mL SDV 10mL 40 MG IVP (08:09)
--- NOTE | 2025-04-02 10:21 | PC.NURSE ---
Per [facility] with the [facility]- [facility] will contact this person with pts follow-up information. Once f/u is given this person will contact pt with f/u information.
[2025-04-02 10:54] VITALS: BP 107/69; PULSE 74; RESP 15; O2SAT 94
--- NOTE | 2025-04-02 14:47 | P.DS_ITS ---
Discharge Providers Date of Admission: 03/28/25 09:50 Date of Discharge: April 02, 2025 Attending Provider at Admission: Miguel Ángel العلي Attending Provider at Discharge: Tsering Tomas MD Primary Care Provider: Jacqueline Mackey MD Diagnoses at Discharge Discharge Diagnosis 1. Systolic and diastolic CHF, acute on chronic: 2. Aortic stenosis, moderate: 3. History of open heart surgery: 4. Congestive heart failure: 5. Obesity (BMI 30-39.9): 6. Chronic leukemia: Reason for Visit Reason for Visit: SOB Hospital Course Hospital Course 69 year old male gentleman with chronic myeloid leukemia (CML) on bosutinib, h/o CAD and cardiomyopathy Was admitted to the hospital on March 28, 2025 with chief complaints of increasing shortness of breath, leg swelling and orthopnea. He was noted to be hypotensive and hypoxic initially upon arrival. Found to have elevated BNP, sinus bradycardia and first-degree AV block. Chest x-ray was compatible with pulmonary edema. He started treatment with IV Lasix following which he diuresed well. He was net negative by over 5 L and is currently euvolemic by the time of discharge. On March 30, 2025 he underwent left heart cath which showed total occlusion of the left main and no flow in the left circumflex. Severely elevated right and left-sided cardiac pressures were noted. Optimized medical therapy along with LifeVest was recommended. Echocardiogram showed an ejection fraction estimated at 25 -30 % with Global left ventricular hypokinesis. Medical therapy was optimized to include aspirin 81 mg daily, Brilinta 90 mg p.o. twice daily, atorvastatin 40 mg daily, ezetimibe 10 mg p.o. daily. Lisinopril was discontinued and patient was started on Entresto twice daily. He was noted to be bradycardic initially upon arrival on metoprolol 25 mg twice daily. Dose was reduced in half to 12.5 mg p.o. twice daily at the time of discharge for this reason. Potentially bosutinib may be associated with adverse cardiac events, for now the medicine has been placed on hold after discussion with patient's oncologist. He has a follow up with oncology on April 09, 2025 to assess if this medicine may be resumed vs alternatives considered. Physical Exam Narrative: General: No acute distress, AO x3 HEENT: PERRLA, pupils bilaterally equal and reactive, pallors not present Chest: Normal vesicular breath sounds, no added sounds, equal good air entry bilaterally CVS: S1-S2 regular, no murmurs, no tachycardia, no gallops, no rubs Abdomen: Soft, nontender, no organomegaly, bowel sounds present Neuro: No focal deficits, no facial deformity, AO x3, power 5/5 in all limbs Discharge Data Studies Completed and Pending Completed Studies During Hospitalization Category Date Time Status CT angio chest PE protcl [id number] Stat Cat Scan 03/28/25 08:01 Completed XR chest 1V portable [id number] Stat Exams 03/28/25 07:28 Completed XR chest 2V* [id number] Routine Exams 03/31/25 13:26 Completed CV. echo limited [id number] Stat Ultrasound 03/28/25 11:12 Completed Pending at discharge Category Date Time Status ADMINISTR[employer]IVE [employer]TEER request for service Routine Exams 03/30/25 06:00 Taken Lipoprotein (a) Routine Lab 03/31/25 03:04 Received Radiology Impressions Chest CTA 03/28/25 08:01 IMPRESSION: 1. No evidence for pulmonary embolus. 2. Moderate RIGHT and small LEFT pleural effusions. 3. Loculated pleural fluid/nodular pleural thickening along the RIGHT lower lobe laterally extending along the mediastinum to the lung apex. This may be benign trapped fluid but neoplasm should be excluded. 4. Compressive atelectasis RIGHT lower lobe. 5. Hazy groundglass attenuation throughout both lungs may be infectious or inflammatory versus pulmonary edema 6. Cardiomegaly. 7. Contrast reflux into the hepatic veins can be seen with RIGHT heart dysfunction Notified Marco Salazar DO at 03/28/2025 9:37 AM. Chest X-Ray 03/31/25 13:26 IMPRESSION: Decrease in bilateral pleural effusions with lower lobe consolidation/collapse. Laboratory Results WBC 11.15 10^3/uL (3.29-11.43) 03/31/25 03:04 RBC 3.86 10^6/uL (3.85-5.65) 03/31/25 03:04 Hgb 11.00 g/dL (11.27-16.99) L 03/31/25 03:04 Hct 34.4 % (37-53) L 03/31/25 03:04 MCV 89.1 fl (82-101) 03/31/25 03:04 MCH 28.5 pg (27-33) 03/31/25 03:04 MCHC 32.0 g/dL (30-55) 03/31/25 03:04 RDW 14.1 % (12.1-15.1) 03/31/25 03:04 Plt Count 297 10^3/cmm (157-399) 03/31/25 03:04 MPV 9.8 fL (7.4-10.4) 03/31/25 03:04 Neut % (Auto) 65.3 % 03/31/25 03:04 Lymph % (Auto) 14.1 % 03/31/25 03:04 [place] % (Auto) 10.3 % 03/31/25 03:04 Eos % (Auto) 8.7 % 03/31/25 03:04 Baso % (Auto) 0.8 % 03/31/25 03:04 Neut # (Auto) 7.28 10^3/uL (1.8-7.7) 03/31/25 03:04 Lymph # (Auto) 1.6 10^3/uL (0.8-4.8) 03/31/25 03:04 [place] # (Auto) 1.2 10^3/uL (0.2-0.9) H 03/31/25 03:04 Eos # (Auto) 1.0 10^3/uL (0.0-0.8) H 03/31/25 03:04 Baso # (Auto) 0.1 10^3/uL (0.0-0.1) 03/31/25 03:04 Nucleated RBC % (auto) 0 % 03/31/25 03:04 Nucleated RBCs # 0.0 /100WBC 03/31/25 03:04 APTT 66.0 SECONDS (23.9-36.7) H 03/30/25 02:32 Specimen Type Arterial 03/30/25 07:33 Sample Site Not Reportable 03/30/25 07:33 Cornelio Test N/a 03/30/25 07:33 A-a O2 Gradient 8.1 mmHg (5-10) 03/30/25 07:33 Hematocrit 36.6 % (42-52) L 03/30/25 07:33 Hgb O2 Saturation 63.5 % (95-100) L 03/30/25 07:33 Carboxyhemoglobin 1.3 %THgb (0.4-20.1) 03/30/25 07:33 Methemoglobin 1.0 % (0.4-1.5) 03/30/25 07:33 Total Hemoglobin 11.9 g/dL (14-18) L 03/30/25 07:33 O2 Delivery Device Room air 03/30/25 07:33 FiO2 21.0 % 03/30/25 07:33 Procedural Nurse ID [place] 03/30/25 07:33 Sodium 138 mmol/L (136-145) 04/02/25 03:30 Potassium 3.7 mmol/L (3.5-5.1) 04/02/25 03:30 Chloride 100 mmol/L (98-107) 04/02/25 03:30 Carbon Dioxide 24 mmol/L (22-29) 04/02/25 03:30 Anion Gap 17.7 (5-19) 04/02/25 03:30 BUN 21 mg/dL (8-23) 04/02/25 03:30 Creatinine 1.2 mg/dL (0.7-1.2) 04/02/25 03:30 GFR Calculation Not Reportable 04/02/25 03:30 Glucose 97 mg/dL (65-115) 04/02/25 03:30 Calculated Osmolality 289 mOsm/kg (285-295) 04/02/25 03:30 Calcium 9.4 mg/dL (8.5-10.5) 04/02/25 03:30 Magnesium 2.4 mg/dL (1.7-2.3) H 03/29/25 00:55 Total Bilirubin 0.2 mg/dL (0.15-1.2) 03/31/25 03:04 AST 17 U/L (0-40) 03/31/25 03:04 ALT 37 U/L (0-41) 03/31/25 03:04 Alkaline Phosphatase 86 U/L (40-130) 03/31/25 03:04 Troponin T Baseline 2119 ng/L (0-15) H* 03/28/25 07:21 Troponin T 120 Minute 1880 ng/L (0-15) H 03/28/25 09:33 Delta Troponin T -239 ABS# (0-10) L 03/28/25 09:33 Troponin T Hi Sens 6Hr 1814 ng/L (0-15) H 03/28/25 13:00 Troponin T Hi Sens 6Hr Delta -305 ng/L (0-12) L 03/28/25 13:00 C-React Prot High Sens 1.840 mg/dL (0.0-0.3) H 03/31/25 03:04 NT-Pro-B Natriuret Pep 2406 pg/mL (0-125) H 03/28/25 07:21 Total Protein 6.1 g/dL (6.6-8.7) L 03/31/25 03:04 Albumin 3.9 g/dL (3.5-5.2) 03/31/25 03:04 Globulin 2.2 g/dL (1.3-4.6) 03/31/25 03:04 Triglycerides 114 mg/dL (0-150) 03/31/25 03:04 Cholesterol 188 mg/dL (0-200) 03/31/25 03:04 LDL Cholesterol, Calc 127 mg/dL (50-129) 03/31/25 03:04 HDL Cholesterol 38 mg/dL (60-100) L 03/31/25 03:04 LDL/HDL Ratio 3.34 RATIO (0.00-3.22) H 03/31/25 03:04 Cholesterol/HDL Ratio 4.95 mg/dL (1.0-5.00) 03/31/25 03:04 Urine Color Yellow (Yellow) 03/28/25 08:28 Urine Appearance Clear (CLEAR) 03/28/25 08:28 Urine pH 5.0 (5-7) 03/28/25 08:28 Ur Specific [place] 1.008 (1.005-1.030) 03/28/25 08:28 Urine Protein Negative (Negative) 03/28/25 08:28 Urine Glucose (UA) Negative (Normal) 03/28/25 08:28 Urine Ketones Negative (Negative) 03/28/25 08:28 Urine Blood Negative (Negative) 03/28/25 08:28 Urine Nitrate Negative (Negative) 03/28/25 08:28 Urine Bilirubin Negative (Negative) 03/28/25 08:28 Urine Urobilinogen 0.2 mg/dL (Negative) 03/28/25 08:28 Ur Leukocyte Esterase Negative (Negative) 03/28/25 08:28 Urine RBC 0-2 /hpf (0-2) 03/28/25 08:28 Urine WBC 0-5 /hpf (0-5) 03/28/25 08:28 Ur Squamous Epith Cells 0-5 /hpf (0-5) 03/28/25 08:28 Amorphous Sediment Not Reportable 03/28/25 08:28 Urine Bacteria None seen /hpf (NONE) 03/28/25 08:28 Hyaline Casts 0.81 /lpf 03/28/25 08:28 Influenza A (PCR) Negative (Negative) 03/28/25 09:58 Influenza Type B (PCR) Negative (Negative) 03/28/25 09:58 RSV (PCR) Negative (Negative) 03/28/25 09:58 SARS-CoV-2 (PCR) Negative (Negative) 03/28/25 09:58 Vitals Last Vital Signs Temp 97.4 F L 04/02/25 07:45 Pulse 74 04/02/25 10:54 Resp 15 04/02/25 10:54 BP 107/69 04/02/25 10:54 Pulse Ox 94 04/02/25 10:54 O2 Del Method Room Air 04/02/25 07:45 Discharge Plan Discharge Patient Disposition: Home Condition: Stable Prescriptions: New aspirin 81 mg Tablet,Delayed Release (Dr/Ec) 81 mg PO DAILY 30 Days Qty: 30 1RF ezetimibe 10 mg Tablet 10 mg PO DAILY 30 Days Qty: 30 0RF Entresto 24-26 mg Tablet 1 tab PO BID 30 Days Qty: 60 0RF Continued levothyroxine 112 mcg capsule 112 mcg PO DAILY Brilinta 90 mg tablet 90 mg PO BID oxycodone 10 mg tablet 10 - 20 mg PO .Q4-6H PRN (Reason: Pain) riboflavin (vitamin B2) 50 mg tablet 50 mg PO DAILY cholecalciferol (vitamin D3) 50 mcg (2,000 unit) capsule 100 mcg PO DAILY vitamin A acetate 3,000 mcg (10,000 unit) tablet, sublingual 3,000 mcg PO DAILY vitamin E (dl, acetate) 45 mg (100 unit) capsule 45 mg PO DAILY potassium chloride 10 mEq capsule, extended release 10 meq PO DAILY Qty: 90 3RF folic acid 400 mcg Tablet 0.4 mg PO DAILY triamcinolone acetonide 0.1 % Ointment 1 applic TOPICAL BID MDD 2 weeks monthly PRN (Reason: Skin Irritation) atorvastatin 40 mg tablet 40 mg PO QPM Changed furosemide 20 mg tablet 40 mg PO DAILY Qty: 90 3RF metoprolol tartrate 25 mg tablet 12.5 mg PO BID 30 Days Qty: 30 0RF Held Bosulif 100 mg capsule 400 mg PO DAILY Hold Instructions: Resume on 04/16/25. hold until follow up with Dr. Andrade Rx Instructions: administer with meal/food; swallow whole OR open/mix in yogurt/applesauce; do not crush/chew Discontinued lisinopril 10 mg tablet 10 mg PO DAILY Discharge Order = DC NOW: Discharge Order (Routine); Ordered 04/02/25 Ordered By: Tsering Tomas Referrals: Cuauhtemoc Andrade MD [Hospitalist, Oncology] - 04/09/25 3:15 pm Heaven Conrad NP [Nurse Practitioner, Dermatology] - 04/16/25 3:45 pm Jacqueline Mackey MD [Primary Care Provider, Family Practice] - 4-7 days Referral Note: The [facility] clinic will contact us with your follow-up information. Once scheduled we will contact you with that information. Thank you. Patient Instructions: Aspirin (By mouth), Ezetimibe (By mouth) (Zetia), Sacubitril/Valsartan (By mouth) (Entresto, Entresto Sprinkle), Heart Catheterization (DC), CHF Stoplight, Opioid Safety, Post Angiogram Home Care Instructions, Patient Portal & Lois Instructions Discharge Attestations Time Spent in Discharge Care*: greater than 30 min Quality Metrics Clinical Quality Measures [ No reported AMI, CVA or VTE this stay] Coding Level of Care Code Acute Code for Chg Fwd Diagnoses Systolic and diastolic CHF, acute on chronic I50.43 Aortic stenosis, moderate I35.0 History of open heart surgery Z98.890 Congestive heart failure I50.9 Obesity (BMI 30-39.9) E66.9 Chronic leukemia C95.10
--- NOTE | 2025-04-02 15:10 | P.PN_ITS ---
<Statement entered by Buster Ndiaye M.D - 04/03/25 09:37> Patient was cared for in conjunction with an advanced practice practitioner.? I reviewed the chart and all pertinent data including imaging, telemetry, and laboratory results.? I discussed the patient in detail with the advanced practice practitioner.? Please see?their note for progress note, testing results and agreed upon plan of care for the patient. Subjective 2 Subjective: Patient with history of NSTEMI CHF complete total occlusion of the left main patent MARIE to LAD RCA patent. Currently doing well with no complaints denies chest pain or shortness of breath. -2560 L over 24 hours. Oxygen saturation 95% on room air. Blood pressure stable labs are stable. Currently has LifeVest. Vitals/I&O/Wt Last Vital Signs Temp 97.4 F L 04/02/25 07:45 Pulse 74 04/02/25 10:54 Resp 15 04/02/25 10:54 BP 107/69 04/02/25 10:54 Pulse Ox 94 04/02/25 10:54 O2 Del Method Room Air 04/02/25 07:45 04/02/25 04/02/25 04/02/25 06:59 14:59 22:59 Intake Total 480 / 480 Output Total 200 / 3100 300 / 300 Balance -200 / -1780 180 / 180 Weight last 48 hrs Weight 241 lb Weight 243 lb 14.4 oz Weight 243 lb 14.4 oz Physical Exam 2 Narrative: General: No apparent distress, healthy appearing, well nourished HENMT: normoceophalic Muskuloskeletal: Full ROM Respiratory: Normal respiratory effort, clear to auscultation bilaterally throughout all lung [place], no use of accessory muscles Cardio: No JVD, regular rate, regular rhythm, S1 S2 normal, no murmurs, peripheral pulses 2+ radial palpated bilaterally Extremities: Full ROM, normal, normal capillary refill, no cyanosis or edema Neuro: Alert and oriented x4, no focal motor deficits Psych: Affect normal, denies suicidal ideation, mental status grossly normal Skin: right fem stick clean, dry, intact w/o s/s of hematoma Data 03/31/25 03:04 04/02/25 03:30 A&P Assessment and plan 1. Systolic and diastolic CHF, acute on chronic: 2. Aortic stenosis, moderate: 3. History of open heart surgery: 4. Obesity (BMI 30-39.9): Plan: Patient looks good without complaints. Continue LifeVest since his LVEF is 25 to 30%. Continue Entresto at dose 24/26mg BID. BP has been stable with this. He appears nearly euvolemic. Agree with lasix 40 mg PO daily. To reevaluate at cardiology appointment. From cardiology standpoint, ok do d/c home. Follow-up in the cardiology clinic in 7 to 10 days. Continue Brilinta and aspirin, agree with low dose metoprolol for heart failure. Monitor for bradycardia. Hold for heart rate less than 60. Continue Atorvastatin 40 mg daily. Potassium normal. Continue to introduce GDMT. Repeat echo in 3 months to evaluate LV function. Ok to discharge from cardiology standpoint. PDMP PDMP Reviewed: Not Reviewed Attestations 2 Medical Necessity Statement*: Deferred to primary. Coding Level of Care Code Acute Code for Chg Fwd Diagnoses Systolic and diastolic CHF, acute on chronic I50.43 Aortic stenosis, moderate I35.0 History of open heart surgery Z98.890 Obesity (BMI 30-39.9) E66.9
== END 2025-04-02 11:50 | disposition home or self-care (01) | DRG 286 ==
LOC: ER 10:23 → CSU 15:42
PROVIDERS: Internal Medicine; Admitting Provider Internal Medicine; Emergency Provider Family Medicine; PCP Family Medicine; Visit Provider Student in an Organized Health Care Education/Training Program
PROC: 4A023N8 Measurement of Cardiac Sampling and Pressure, Bilateral, Percutaneous Approach (ICD-10-PCS; principal; 2025-03-30 06:00)
DX: I11.0 Hypertensive heart disease with heart failure (principal); I50.43 Acute on chronic combined systolic (congestive) and diastolic (congestive) heart failure; C92.10 Chronic myeloid leukemia, BCR/ABL-positive, not having achieved remission; Z68.41 Body mass index [BMI] 40.0-44.9, adult; I42.9 Cardiomyopathy, unspecified; I25.10 Atherosclerotic heart disease of native coronary artery without angina pectoris; I50.813 Acute on chronic right heart failure; I44.0 Atrioventricular block, first degree; R79.89 Other specified abnormal findings of blood chemistry; I25.82 Chronic total occlusion of coronary artery; I35.0 Nonrheumatic aortic (valve) stenosis; R00.1 Bradycardia, unspecified; E66.01 Morbid (severe) obesity due to excess calories; R09.02 Hypoxemia; I95.9 Hypotension, unspecified; Z79.899 Other long term (current) drug therapy; Z79.02 Long term (current) use of antithrombotics/antiplatelets; Z11.52 Encounter for screening for COVID-19; Z79.82 Long term (current) use of aspirin; Z88.0 Allergy status to penicillin; Z88.8 Allergy status to other drugs, medicaments and biological substances; Z95.5 Presence of coronary angioplasty implant and graft; Z95.1 Presence of aortocoronary bypass graft
CPT/HCPCS: 36415; 51702; 71045; 71046; 71275; 80048; 80053; 80061; 81001; 82810; 83695; 83735; 83880; 84484; 85025; 85347; 85730; 86141; 87637; 93005; 93308; 93461; 96365; 96367; 96375; 96376; 99152; 99153; 99291; C1751; C1760; C1769; C1887; C1894; G0269; J1644; J1938; J2250; J3010; J7030; J9999; Q0163; Q9967

== ENCOUNTER → 2025-04-09 15:45 | Outpatient (BNVA) | payer OTHER, SELFPAY | PROVIDERS: PCP Family Medicine; Visit Provider Internal Medicine Medical Oncology | DX: C92.11 Chronic myeloid leukemia, BCR/ABL-positive, in remission (principal); Z79.899 Other long term (current) drug therapy | CPT/HCPCS: 99214 ==

== ENCOUNTER → 2025-04-16 10:55 | Outpatient (BNVA) | payer OTHER, SELFPAY | PROVIDERS: PCP Family Medicine; Visit Provider Nurse Practitioner Family | DX: L57.0 Actinic keratosis (principal); L29.89 Other pruritus; L73.8 Other specified follicular disorders; D48.5 Neoplasm of uncertain behavior of skin | CPT/HCPCS: 11102; 99213 ==

== ENCOUNTER → 2025-05-02 10:46 | Outpatient (BNVA) | payer OTHER, SELFPAY | PROVIDERS: PCP Family Medicine; Visit Provider Dermatology | DX: C44.519 Basal cell carcinoma of skin of other part of trunk (principal); L82.1 Other seborrheic keratosis; L73.8 Other specified follicular disorders; L21.8 Other seborrheic dermatitis; D48.5 Neoplasm of uncertain behavior of skin; L57.0 Actinic keratosis | CPT/HCPCS: 11102; 17000; 99214 ==

== ENCOUNTER 2025-05-21 11:18 | Oncology outpatient (recurring) (ONCR) | payer OTHER, SELFPAY ==
[2025-05-21 12:00] LABS: Hematocrit 42.4 % (37-53); Hemoglobin 14.20 g/dL (11.27-16.99); Mean Corpuscular HGB Conc 33.5 g/dL (30-55); Mean Corpuscular Hemoglobin 28.9 pg (27-33); Mean Corpuscular Volume 86.4 fl (82-101); Nucleated Red Blood Cells % 0 %; Platelet Count 325 10^3/cmm (157-399); Red Blood Count 4.91 10^6/uL (3.85-5.65); White Blood Count 13.11 10^3/uL (3.29-11.43)
[2025-05-21 12:24] LABS: Alanine Aminotransferase 19 U/L (0-41); Albumin Level 4.1 g/dL (3.5-5.2); Alkaline Phosphatase 86 U/L (40-130); Anion Gap 17.2 (5-19); Aspartate Amino Transferase 14 U/L (0-40); Blood Urea Nitrogen 28 mg/dL (8-23); Calcium 9.4 mg/dL (8.5-10.5); Carbon Dioxide 21 mmol/L (22-29); Chloride 103 mmol/L (98-107); Creatinine Clr Calc Pharmacy 82.7483; Globulin 3.0 g/dL (1.3-4.6); Glucose 105 mg/dL (65-115); Osmolality Calculated 290 mOsm/kg (285-295); Potassium 4.2 mmol/L (3.5-5.1); Sodium 137 mmol/L (136-145); Total Protein 7.1 g/dL (6.6-8.7)
[2025-05-24 20:34] LABS: BCR ABL1 (IS) 0.005 (0.000); P210 BCR ALB1 DETECTED; P210 BCR ALB1 Yes Test Yes; Source whole blood
== END 2025-05-28 23:59 | disposition home or self-care (01) ==
PROVIDERS: PCP Family Medicine; Visit Provider Nurse Practitioner Family
DX: C92.11 Chronic myeloid leukemia, BCR/ABL-positive, in remission (principal); I95.9 Hypotension, unspecified
CPT/HCPCS: 36415; 80053; 81206; 83615; 85025; 99214

== ENCOUNTER → 2025-05-24 14:22 | Outpatient (BNVA) | payer OTHER, SELFPAY | PROVIDERS: PCP Family Medicine; Visit Provider Internal Medicine Cardiovascular Disease | DX: I25.10 Atherosclerotic heart disease of native coronary artery without angina pectoris (principal); I95.9 Hypotension, unspecified; I50.22 Chronic systolic (congestive) heart failure; I35.0 Nonrheumatic aortic (valve) stenosis; R00.1 Bradycardia, unspecified; Z95.5 Presence of coronary angioplasty implant and graft; Z95.1 Presence of aortocoronary bypass graft; Z87.891 Personal history of nicotine dependence; I25.2 Old myocardial infarction | CPT/HCPCS: 99214 ==

== ENCOUNTER 2025-06-19 09:03 | Oncology outpatient (recurring) (ONCR) | payer OTHER, SELFPAY ==
--- NOTE | 2025-06-19 09:15 | USCV_ITS ---
Emir Mcmullen Age: 69 Gender: M : 1955 Exam Date: 06/19/2025 09:36 Ordering Phys: Cristian Irvin MD ([email or web address]) Technologist: Exam Location: [facility] [place] Indication: cad BP: 131 / 80 HR: 69 Rhythm: Sinus Technical Quality: MEASUREMENTS (Male / Female) Normal Values 2D ECHO LV Diastolic Diameter PLAX 5.4 cm 4.2 - 5.9 / 3.9 - 5.3 cm IVS Diastolic Thickness 1.0 cm 0.6 - 1.0 / 0.6 - 0.9 cm IVS Systolic Thickness 1.3 cm LVPW Systolic Thickness 1.8 cm LV Ejection Fraction 2D Teich 16.6 % LV Ejection Fraction MOD 4C 37.6 % LV Ejection Fraction MOD 2C 34.3 % LV Ejection Fraction 2C AL 36.3 % RA Systolic Volume 4C AL 53.6 ml RA Systolic Volume 4C MOD 48.7 ml LA Sys Volume AL 129.2 cm cubed LA Sys Volume Index AL 54.5 cm cubed/m squared IVC Diameter 1.1 cm M-MODE LA Ao Ratio MM 1.3 AV Cusp Separation MM 2.3 cm DOPPLER AV Peak Velocity 230.5 cm/s LVOT Peak Velocity 53.0 cm/s MV Peak Velocity 104.0 cm/s MV Area PHT 4.7 cm squared Mitral E to A Ratio 0.4 TR Peak Velocity 140.0 cm/s TR Peak Gradient 7.8 mmHg TV Peak E Velocity 63.0 cm/s PV Peak Velocity 136.0 cm/s FINDINGS Left Ventricle Mildly dilated left ventricle. Moderate to severe reduction in left ventricular systolic function, EF 30 to 35%. Global left ventricular systolic dysfunction. Endocardial border not well- visualized, consider repeat limited echo with echo contrast to reassess left ventricular systolic function more accurately. Normal left ventricular wall thickness. Grade 1 out of 4 left ventricular diastolic dysfunction. Right Ventricle Normal right ventricular size and systolic function. Right Atrium Normal right atrial size. Left Atrium Left atrium not well-visualized but appears mildly enlarged. IA Septum Normal appearance of the interatrial septum. Mitral Valve Moderate mitral annular calcification. No stenosis or regurgitation. Aortic Valve Trileaflet aortic valve not well-visualized. Severe calcification of the right coronary cusp with mild aortic valve stenosis. No aortic valve regurgitation Tricuspid Valve Normal tricuspid valve structure. No tricuspid valve stenosis or regurgitation. Normal pulmonary pressure. Pulmonic Valve Normal pulmonic valve structure. No pulmonic valve stenosis or regurgitation. Pericardium No pericardial effusion. Aorta Normal diameter of the aortic root and ascending thoracic aorta. IVC Normal IVC diameter. CONCLUSIONS 1. Moderately reduced left ventricular systolic function, EF 30 to 35%. Left ventricular endocardial border not well- visualized. To better assess regional wall motion consider reimaging left ventricular function with echo contrast. 2. Normal right ventricular size and systolic function. 3. Mild aortic valve stenosis Cristian Irvin MD, FACC (Electronically Signed) Final Date: 25 June 2025 20:45 S
== END 2025-06-28 23:59 | disposition home or self-care (01) ==
LOC: ONCMED 09:05
PROVIDERS: PCP Family Medicine; Visit Provider Nurse Practitioner Family
DX: I50.22 Chronic systolic (congestive) heart failure (principal); I51.7 Cardiomegaly; R93.1 Abnormal findings on diagnostic imaging of heart and coronary circulation; I34.81 Nonrheumatic mitral (valve) annulus calcification; I35.0 Nonrheumatic aortic (valve) stenosis; I35.8 Other nonrheumatic aortic valve disorders
CPT/HCPCS: 93306

== ENCOUNTER → 2025-06-27 15:55 | Outpatient (BNVA) | payer OTHER, SELFPAY | PROVIDERS: PCP Family Medicine; Visit Provider Internal Medicine Cardiovascular Disease | DX: I25.10 Atherosclerotic heart disease of native coronary artery without angina pectoris (principal); I35.0 Nonrheumatic aortic (valve) stenosis; I11.0 Hypertensive heart disease with heart failure; I50.43 Acute on chronic combined systolic (congestive) and diastolic (congestive) heart failure; I25.5 Ischemic cardiomyopathy; C95.91 Leukemia, unspecified, in remission; Z95.1 Presence of aortocoronary bypass graft; Z87.891 Personal history of nicotine dependence | CPT/HCPCS: 99214 ==

== ENCOUNTER 2025-07-08 12:09 | Oncology outpatient (recurring) (ONCR) | payer OTHER, SELFPAY ==
[2025-07-08 12:52] LABS: Hematocrit 44.9 % (37-53); Hemoglobin 15.20 g/dL (11.27-16.99); Mean Corpuscular HGB Conc 33.9 g/dL (30-55); Mean Corpuscular Hemoglobin 29.4 pg (27-33); Mean Corpuscular Volume 86.8 fl (82-101); Nucleated Red Blood Cells % 0 %; Platelet Count 311 10^3/cmm (157-399); Red Blood Count 5.17 10^6/uL (3.85-5.65); White Blood Count 11.15 10^3/uL (3.29-11.43)
[2025-07-08 13:04] LABS: Alanine Aminotransferase 22 U/L (0-41); Albumin Level 4.3 g/dL (3.5-5.2); Alkaline Phosphatase 104 U/L (40-130); Anion Gap 17.4 (5-19); Aspartate Amino Transferase 12 U/L (0-40); Blood Urea Nitrogen 19 mg/dL (8-23); Calcium 9.6 mg/dL (8.5-10.5); Carbon Dioxide 22 mmol/L (22-29); Chloride 103 mmol/L (98-107); Globulin 2.9 g/dL (1.3-4.6); Glucose 132 mg/dL (65-115); Osmolality Calculated 290 mOsm/kg (285-295); Potassium 4.4 mmol/L (3.5-5.1); Sodium 138 mmol/L (136-145); Total Protein 7.2 g/dL (6.6-8.7)
[2025-07-10 21:56] LABS: BCR ABL1 (IS) 0.000 (0.000); P210 BCR ALB1 NOT DETECTED; P210 BCR ALB1 Yes Test Yes; Source whole blood
== END 2025-07-28 23:59 | disposition home or self-care (01) ==
PROVIDERS: PCP Family Medicine; Visit Provider Nurse Practitioner Family
DX: C92.11 Chronic myeloid leukemia, BCR/ABL-positive, in remission (principal); Z87.891 Personal history of nicotine dependence; T82.855A Stenosis of coronary artery stent, initial encounter; X58.XXXA Exposure to other specified factors, initial encounter
CPT/HCPCS: 36415; 80053; 81206; 85025; 99213

== ENCOUNTER 2025-08-26 13:11 | Oncology outpatient (recurring) (ONCR) | payer OTHER, SELFPAY ==
[2025-08-19 11:34] LABS: Hematocrit 44.5 % (37-53); Hemoglobin 15.00 g/dL (11.27-16.99); Mean Corpuscular HGB Conc 33.7 g/dL (30-55); Mean Corpuscular Hemoglobin 29.2 pg (27-33); Mean Corpuscular Volume 86.7 fl (82-101); Nucleated Red Blood Cells % 0 %; Platelet Count 352 10^3/cmm (157-399); Red Blood Count 5.13 10^6/uL (3.85-5.65); White Blood Count 12.93 10^3/uL (3.29-11.43)
[2025-08-19 11:52] LABS: Alanine Aminotransferase 21 U/L (0-41); Albumin Level 4.0 g/dL (3.5-5.2); Alkaline Phosphatase 95 U/L (40-130); Anion Gap 19.2 (5-19); Aspartate Amino Transferase 14 U/L (0-40); Blood Urea Nitrogen 32 mg/dL (8-23); Calcium 9.6 mg/dL (8.5-10.5); Carbon Dioxide 22 mmol/L (22-29); Chloride 101 mmol/L (98-107); Globulin 2.9 g/dL (1.3-4.6); Glucose 111 mg/dL (65-115); Osmolality Calculated 292 mOsm/kg (285-295); Potassium 5.2 mmol/L (3.5-5.1); Sodium 137 mmol/L (136-145); Total Protein 6.9 g/dL (6.6-8.7)
[2025-08-22 13:33] LABS: BCR ABL1 (IS) 0.006 (0.000); P210 BCR ALB1 DETECTED; P210 BCR ALB1 Yes Test Yes; Source blood
== END 2025-08-28 23:59 | disposition home or self-care (01) ==
PROVIDERS: Nurse Practitioner; PCP Family Medicine; Visit Provider Nurse Practitioner Family
DX: C92.11 Chronic myeloid leukemia, BCR/ABL-positive, in remission (principal); Z96.89 Presence of other specified functional implants
CPT/HCPCS: 36415; 80053; 81206; 85025; 99213